=== PATIENT | female | born 1950 | race Caucasian/White ===

== ENCOUNTER 2018-05-24 11:18 | Inpatient (IN) | payer OTHER ==
[2018-05-24 11:34] VITALS: BMI 32.1
--- NOTE | 2018-05-24 11:48 | PDOC ---
Attending Attestation - Resident Resident Name: ChocoChetan peña - ED Attending Attestation I have performed the following: I have examined & evaluated the patient, The case was reviewed & discussed with the resident, I agree w/resident's findings & plan, Exceptions are as noted - HPI HPI: 05/24/18 11:47 67yo F Hx HTN, HL, CAD, vertigo BIBEMS for CP that started 12 hours ago. Pt describes CP as squeezing, 5/10, LSCP under her breast. She states the pain is better now in the ED after the nitro pill EMS gave her. She notes she has had similar chest pain for many months, but this morning "could not take the pain anymore." She also states her BP was elevated this morning prompting her to also call EMS. She c/o a global headache of gradual onset this morning too which she states she often has when her BP is high. 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 Per Dr. Jordan's office, she has not seen him in 7 years. Denies assciated sxs of weakness/numbness, abd pain, diaphoresis, N/V/D, LE edema. - Physicial Exam PE: 05/24/18 12:46 GENERAL: Awake, alert, and fully oriented, in no acute distress EYES: PERRLA, EOMI, sclera anicteric, conjunctiva clear ENT: Moist mucosa NECK: Normal ROM, supple, no lymphadenopathy, JVD, or masses LUNGS: Breath sounds equal, clear to auscultation bilaterally. No wheezes, and no crackles HEART: Regular rate and rhythm, normal S1 and S2, no murmurs, rubs or gallops. BP equal b/l. ABDOMEN: Soft, nontender, normoactive bowel sounds. No guarding, no rebound. No masses EXTREMITIES: Normal range of motion, no edema. No clubbing or cyanosis. No cords, erythema, or tenderness NEUROLOGICAL: Normal speech, cranial nerves intact, equal strength and sensation b/l. SKIN: Warm, Dry, normal turgor, no rashes or lesions noted. - Medical Decision Making 05/24/18 12:51 67yo F hx MMP including CAD presents to the ED with progressive LSCP. Vitals wnl. Exam wnl. EKG with sub 1mm BELÉN in AVR with lateral depressions. PT reporting pain has resolved at this time but story is concerning for unstable angina. Plan to check labs, XR, rpt EKG, discuss with cards, anticipate admission. Heart Score/ECG Review #1 05/24/18 12:49 Twelve-lead EKG was performed and reviewed by me. Normal sinus rhythm, rate 79. Normal axis. Sub-[address] elevation in aVR with [address] depressions in V4 to V6. When compared to EKG from 12/23/2015, ST elevation in aVR appears slightly higher today.
--- NOTE | 2018-05-24 11:51 | PDOC ---
History of Present Illness - General Stated Complaint: CHEST PAIN Time Seen by Provider: 05/24/18 11:23 History Source: Patient Exam Limitations: No Limitations - History of Present Illness Initial Comments: 05/24/18 11:39 The patient is a 67F with a PMH of HTN, HLD, CAD, arthritis, vertigo, who presents with CP. The patient states that she woke up in the middle of the night and felt squeezing under her R breast. The squeezing woke her up out of sleep, is intermittent, radiates to her L side, and does not have exacerbating or alleviating factors. She states it feels like a 3/10. She denies nausea, vomiting, lightheadedness, diaphoresis, and palpitations. She does admit to "dizziness" which she states feels like her vertigo. 05/24/18 13:47 Past History - Past Medical History Allergies/Adverse Reactions: Allergies Allergy/AdvReac Type Severity Reaction Status Date / Time celecoxib [From Celebrex] Allergy Mild Verified 05/24/18 11:32 Shellfish Allergy Mild Swelling Verified 05/24/18 11:32 Home Medications: Ambulatory Orders Ranolazine [Ranexa -] 1,000 mg PO BID #0 tab 06/04/12 Ranitidine HCl [Zantac] 150 mg PO BID 04/10/13 Alendronate Na [Fosamax (Weekly)] 1 tab PO WEEKLY 01/31/14 Rosuvastatin Calcium [Crestor] 20 mg PO HS 01/31/14 Propranolol HCl [Propranolol HCl ER] 160 mg PO BID 06/10/15 traZODone HCL [Desyrel -] 50 mg PO HS 06/10/15 Aripiprazole 2 mg PO HS 12/22/15 Levomefolate/Algal Oil [Deplin-Algal Oil 15 mg Capsule] 1 each PO HS 12/22/15 Hydrocodone/Acetaminophen [Vicodin 5-300 mg Tablet] 1 - 2 tab PO TID PRN #60 tablet MDD 6 12/23/15 Aspirin [ASA -] 81 mg PO DAILY tab.chew 05/29/18 Escitalopram Oxalate [Lexapro -] 10 mg PO DAILY #30 tablet 05/29/18 Heparin - 5,000 unit SQ BID vial 05/29/18 Isosorbide Mononitrate [Imdur -] 60 mg PO DAILY tab.sr.24h 05/29/18 Losartan Potassium [Cozaar -] 50 mg PO DAILY #30 tablet MDD 1 05/29/18 Ranitidine [Zantac -] 150 mg PO BID #30 tablet MDD 2 05/29/18 Ranolazine [Ranexa -] 1,000 mg PO BID tab 05/29/18 Rosuvastatin [Crestor -] 10 mg PO HS tablet 05/29/18 Sodium Chloride Tablet - 1 gm PO BID #30 tablet 05/29/18 propRANOLol HCL [Inderal LA -] 160 mg PO BID #30 capsule.er MDD 2 05/31/18 traZODone HCL [Desyrel -] 50 mg PO HS tablet 05/31/18 Anemia: No Asthma: No Cancer: No Cardiac Disorders: Yes ("MVP,HEART RACES") CVA: No COPD: No CHF: No Dementia: No Diabetes: No GI Disorders: Yes (H/O COLON POLYPS, IBS, HIATAL HERNIA ESPOPHAGEAL ACHALASI) Disorders: Yes (URINARY INCONTINENCE) HTN: Yes Hypercholesterolemia: Yes Liver Disease: Yes ("PT UNSURE OF SAME") Seizures: No Thyroid Disease: No - Surgical History Abdominal Surgery: Yes (HERNIA REPAIR) Appendectomy: Yes Cardiac Surgery: No Cholecystectomy: No Lung Surgery: No Neurologic Surgery: No Orthopedic Surgery: Yes (CARPAL TUNNEL REPAIR, KNEE/BACK SX) - Immunization History Td Vaccination: Yes Immunization Up to Date: Yes - Suicide/Smoking/Psychosocial Hx Smoking Status: No Smoking History: Unknown if ever smoked Years of Tobacco Use: 0 Have you smoked in the past 12 months: No Number of Cigarettes Smoked Daily: 0 Cigars Per Day: 0 Hx Alcohol Use: No Drug/Substance Use Hx: No Substance Use Type: None Hx Substance Use Treatment: No Review of Systems - Review of Systems Able to Perform ROS?: Yes Comments:: 05/24/18 12:10 GENERAL/CONSTITUTIONAL: No fever or chills. No weakness. HEAD, EYES, EARS, NOSE AND THROAT: No change in vision. No ear pain or discharge. No sore throat. CARDIOVASCULAR: Positive for chest pain. No palpitations or lightheadedness. RESPIRATORY: No cough, wheezing, shortness of breath, or hemoptysis. GASTROINTESTINAL: No nausea, vomiting, diarrhea, constipation, or abdominal pain. GENITOURINARY: No dysuria, frequency, hematuria, or change in urination. MUSCULOSKELETAL: No joint or muscle swelling or pain. No neck or back pain. SKIN: No rash or lesions. NEUROLOGIC: Positive for vertiginous dizziness. No headache, numbness, tingling , focal weakness, loss of consciousness, or change in strength/sensation. Is the patient limited [place] proficient: No *Physical Exam - Vital Signs Last Vital Signs Temp Pulse Resp BP Pulse Ox 97.5 F L 90 18 135/92 98 05/24/18 11:20 05/24/18 11:20 05/24/18 11:20 05/24/18 11:20 05/24/18 11:20 - Physical Exam Comments: 05/24/18 12:12 GENERAL: Well developed, well nourished. Awake and alert. No acute distress. HEENT: Normocephalic, atraumatic. Hearing grossly normal. Moist mucous membranes. PERRLA, EOMI. No conjunctival pallor. Sclera are non-icteric. NECK: Supple. Full ROM. No JVD. CARDIOVASCULAR: Regular rate and rhythm. No murmurs, rubs, or gallops. PULMONARY: No evidence of respiratory distress. Lungs clear to auscultation bilaterally. No wheezing, rales or rhonchi. ABDOMINAL: Soft. Non-tender. Non-distended. No rebound or guarding. GENITOURINARY: No CVA tenderness bilaterally. MUSCULOSKELETAL: Normal range of motion at all joints. No bony deformities or tenderness. EXTREMITIES: No cyanosis. No clubbing. 1+ edema in b/l LE. No calf tenderness or swelling. SKIN: Erythematous rash under Warm and dry. Normal capillary refill. No rashes. No jaundice. NEUROLOGICAL: Alert, awake, appropriate. Cranial nerves 2-12 grossly intact. Normal speech. Gait is normal without ataxia. PSYCHIATRIC: Cooperative. Good eye contact. Appropriate mood and affect. Moderate Sedation - Procedure Monitoring Vital Signs: Procedure Monitoring Vital Signs Temperature 97.5 F L 05/24/18 11:20 Pulse Rate 90 05/24/18 11:20 Respiratory Rate 18 05/24/18 11:20 Blood Pressure 135/92 05/24/18 11:20 O2 Sat by Pulse Oximetry (%) 98 05/24/18 11:20 Heart Score/ECG Review - History History: Moderately suspicious - Electrocardiogram EKG: Non specific repolarization disturbance - Age Age: >/= 65 - Risk Factors Risk Factors Heart Score: Yes Hx Hypercholesterolemia, Yes Hx Hypertension, Yes Hx Obesity Based on the list above the patient has:: >/=3 risk factors or Hx atherosclerotic disease - Troponin Troponin: </= normal limit - Score Heart Score - Total: 6 #1 ECG reviewed & interpreted by me at: 12:16 General ECG Interpretation: Sinus Rhythm, Normal Rate, Normal Intervals Compared to previous ECG there are: Changes noted 05/24/18 12:16 NSR vent rate 80 MD 180 QRS 94 QTc 499 ~1mm BELÉN in aVR with depressions in V4-V6 Depressions noted on EKG in 12/2015 but are more prominent today ED Treatment Course - LABORATORY CBC & Chemistry Diagram: 05/31/18 05:30 05/31/18 05:30 - RADIOLOGY Radiology Studies Ordered: Category Date Time Status CHEST X-RAY PORTABLE* [RAD] Stat Radiology 05/24/18 11:28 Ordered Medical Decision Making - Medical Decision Making 05/24/18 11:57 The patient is a 67F with MMP who presents with CP concerning for ACS. EKG shows possible <1mm elevations in aVR c/w EKG in 12/2015. Dr. Godoy's group paged for consultation. EMS gave pt 1 nitro d/t elevated BP. Pt has taken asa at home. 05/24/18 12:17 Dr. Godoy's group paged x 2. 05/24/18 12:19 CXR negative. 05/24/18 12:30 Case d/w Dr. Avalos [phone]. Case also d/w Dr. Reyna who recommends calling Dr. Ferguson as this is the pt's larriman Pt follows with Dr. Ferguson who we will page. Pt has not seen Dr. Ferguson (per his office) in 7-8 years. Pending call back. 05/24/18 13:42 Dr. Avalos states he agrees with our concern but that this is not an acute STEMI. Dr. Reyna paged for admission. 05/24/18 13:[address] Reyna for admission. *DC/Admit/Observation/Transfer Diagnosis at time of Disposition: Chest pain Qualifiers: Chest pain type: precordial pain Qualified Code(s): R07.2 - Precordial pain - Discharge Dispostion Disposition: INTERMEDIATE FACILITY Condition at time of disposition: Improved - Prescriptions - Referrals - Patient Instructions - Post Discharge Activity
[2018-05-24 12:00] LABS: BASO % 0.8 % (0-2.0); EOS % 0.1 % (0-4.5); HEMATOCRIT 38.7 % (32.4-45.2); HEMOGLOBIN 13.8 GM/dL (10.7-15.3); LYMPH % 7.1 % (8-40); MCH 34.4 pg (25.7-33.7); MCHC 35.5 g/dl (32.0-36.0); MEAN CELL VOLUME 96.7 fl (80-96); MEAN PLT VOLUME 7.1 fl (7.5-11.1); PLATELET COUNT 330 K/MM3 (134-434); WHITE BLOOD COUNT 10.2 K/mm3 (4.0-10.0)
[2018-05-24] MEDS ORDERED: ACETAMINOPHEN 1000 MG/100 ML VIAL (NON FORMULARY) IVPB ONE (12:19)
[2018-05-24] MEDS ORDERED: MECLIZINE HCL 25 MG TABLET (FP) PO ONE (12:19)
[2018-05-24 12:21] LABS: INR 1.01 (0.83-1.09); PROTHROMBIN TIME (PATIENT) 11.9 SEC (9.7-13.0)
[2018-05-24] MEDS ORDERED: MECLIZINE HCL 25 MG TABLET (FP) ONE (12:32)
[2018-05-24] MEDS ORDERED: ACETAMINOPHEN INJECTION 100 ML IVPB ONE (12:32)
[2018-05-24 12:40] LABS: ALBUMIN 3.6 g/dl (3.4-5.0); ALK PHOS 61 U/L (45-117); ANION GAP 12 MMOL/L (8-16); BILIRUBIN,TOTAL 0.5 mg/dL (0.2-1); BLOOD UREA NITROGEN 10 mg/dL (7-18); CALCIUM 8.4 mg/dL (8.5-10.1); CHLORIDE 90 mmol/L (98-107); CO2 24 mmol/L (21-32); CREATININE 0.6 mg/dL (0.55-1.3); GLUCOSE,RANDOM 158 mg/dL (74-106); MAGNESIUM 1.8 mg/dL (1.8-2.4); POTASSIUM 3.6 mmol/L (3.5-5.1); SGOT/AST 28 U/L (15-37); SGPT/ALT 16 U/L (13-61); SODIUM 125 mmol/L (136-145); TOT PROT 6.8 g/dl (6.4-8.2)
[2018-05-24] MEDS ORDERED: SODIUM CHLORIDE 0.9% 1000 ML INFUS.BAG IV ONE (12:53)
--- NOTE | 2018-05-24 14:54 | HP ---
Admitting History and Physical - Primary Care Physician PCP: Ethan López - Admission Chief Complaint: came in with chest pressure History of Present Illness: The patient is a 67F with a PMH of HTN, HLD, CAD, arthritis, vertigo, who presents with CP. The patient states that she woke up in the middle of the night and felt squeezing under her R breast. The squeezing woke her up out of sleep, is intermittent, radiates to her L side, and does not have exacerbating or alleviating factors. She states it feels like a 3/10.patient says she feels nauseous History Source: Patient, Medical Record - Past Medical History HEAD OF QUALITY: Yes: Migraine Cardiovascular: Yes: CAD, HTN, Hyperlipdemia - Smoking History Smoking history: Unknown if ever smoked Have you smoked in the past 12 months: No Aproximately how many cigarettes per day: 0 - Alcohol/Substance Use Hx Alcohol Use: No Home Medications - Allergies Allergies/Adverse Reactions: Allergies Allergy/AdvReac Type Severity Reaction Status Date / Time celecoxib [From Celebrex] Allergy Mild Verified 05/24/18 11:32 Shellfish Allergy Mild Swelling Verified 05/24/18 11:32 - Home Medications Home Medications: Ambulatory Orders Ranolazine [Ranexa -] 1,000 mg PO BID #0 tab 06/04/12 Ranitidine HCl [Zantac] 150 mg PO BID 04/10/13 Alendronate Na [Fosamax (Weekly)] 1 tab PO WEEKLY 01/31/14 Rosuvastatin Calcium [Crestor] 20 mg PO HS 01/31/14 Benztropine Mesylate 0.5 mg PO DAILY 06/10/15 Escitalopram Oxalate [Lexapro -] 20 mg PO DAILY 06/10/15 Propranolol HCl [Propranolol HCl ER] 160 mg PO BID 06/10/15 Sumatriptan Succinate [Imitrex] 100 mg PO PRN PRN 06/10/15 traZODone HCL [Desyrel -] 50 mg PO HS 06/10/15 Aripiprazole 2 mg PO HS 12/22/15 Isosorbide Mononitrate [Imdur -] 60 mg PO PRN 12/22/15 Levomefolate/Algal Oil [Deplin-Algal Oil 15 mg Capsule] 1 each PO HS 12/22/15 Oxycodone HCl 10 mg PO PRN PRN 12/22/15 Hydrocodone/Acetaminophen [Vicodin 5-300 mg Tablet] 1 - 2 tab PO TID PRN #60 tablet MDD 6 12/23/15 Physical Examination Vital Signs: Vital Signs Temperature 97.5 F L 05/24/18 11:20 Pulse Rate 90 05/24/18 11:20 Respiratory Rate 18 05/24/18 11:20 Blood Pressure 135/92 05/24/18 11:20 O2 Sat by Pulse Oximetry (%) 100 05/24/18 11:40 Labs: CBC, BMP 05/24/18 11:36 05/24/18 11:36 Problem List - Problems (1) Hyponatremia Assessment/Plan: ivf renal fluid recheck sodium urine lytes recheck sodium Code(s): E87.1 - HYPO-OSMOLALITY AND HYPONATREMIA (2) Chest pain Assessment/Plan: telemtry echo ekg see dr french- consjulted lipid profile statin aspirin Code(s): R07.9 - CHEST PAIN, UNSPECIFIED
[2018-05-24] MEDS ORDERED: ISOSORBIDE MONONITRATE 60 MG TAB.SR.24H (FP) PO ONE (14:55)
[2018-05-24] MEDS ORDERED: SODIUM CHLORIDE 1,000 ML IV SCH (15:00)
--- NOTE | 2018-05-24 15:36 | EKG ---
Test Reason : Blood Pressure : / mmHG Vent. Rate : 079 BPM Atrial Rate : 079 BPM P-R Int : 180 ms QRS Dur : 094 ms QT Int : 436 ms P-R-T Axes : 055 -11 -02 degrees QTc Int : 499 ms NORMAL SINUS RHYTHM PROLONGED QT ABNORMAL ECG WHEN COMPARED WITH ECG OF 23-DEC-2015 09:33, ST NOW DEPRESSED IN INFERIOR LEADS T WAVE INVERSION LESS EVIDENT IN LATERAL LEADS QT HAS LENGTHENED Confirmed by TASHIA OBREGON, OLEKSANDR ([id number]) on 05/24/2018 3:36:34 PM Referred By: Confirmed By:OLEKSANDR LAO MD
[2018-05-24] MEDS ORDERED: ONDANSETRON 4 MG/2 ML VIAL ONE (16:50)
[2018-05-24] MEDS: ONDANSETRON 4 MG/2 ML VIAL IVPUSH PRN ×2 (16:54→21:47)
--- NOTE | 2018-05-24 17:05 | CONSULT ---
Consult Consult Specialty:: Nephrology Reason for Consultation:: hyponatremia - History of Present Illness Chief Complaint: chest pain History of Present Illness: Pt is a 67 year old female with pmhx of HTN, HLD, CAD, arthritis, depression and vertigo who presents to [facility] ER with chest pain. She says it began in the middle of the night and felt like pressure under her right chest. She was found to be hyponatremic and I was called to evaluate her. She denies excess water intake. She says that she is on [facility] meds but does not remember the names. She denies lower ext edema or shortness of breath. He denies dysuria or hematuria. She denies nausea or vomiting. She denies diarrhea. 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 Cardio/Vascular: Yes: CAD, HTN, Hyperlipdemia Psych: Yes: Depression - Alcohol/Substance Use Hx Alcohol Use: No - Smoking History Smoking history: Unknown if ever smoked Have you smoked in the past 12 months: No Aproximately how many cigarettes per day: 0 Home Medications - Allergies Allergies/Adverse Reactions: Allergies Allergy/AdvReac Type Severity Reaction Status Date / Time celecoxib [From Celebrex] Allergy Mild Verified 05/24/18 11:32 Shellfish Allergy Mild Swelling Verified 05/24/18 11:32 - Home Medications Home Medications: Ambulatory Orders Ranolazine [Ranexa -] 1,000 mg PO BID #0 tab 06/04/12 Ranitidine HCl [Zantac] 150 mg PO BID 04/10/13 Alendronate Na [Fosamax (Weekly)] 1 tab PO WEEKLY 01/31/14 Rosuvastatin Calcium [Crestor] 20 mg PO HS 01/31/14 Benztropine Mesylate 0.5 mg PO DAILY 06/10/15 Escitalopram Oxalate [Lexapro -] 20 mg PO DAILY 06/10/15 Propranolol HCl [Propranolol HCl ER] 160 mg PO BID 06/10/15 Sumatriptan Succinate [Imitrex] 100 mg PO PRN PRN 06/10/15 traZODone HCL [Desyrel -] 50 mg PO HS 06/10/15 Aripiprazole 2 mg PO HS 12/22/15 Isosorbide Mononitrate [Imdur -] 60 mg PO PRN 12/22/15 Levomefolate/Algal Oil [Deplin-Algal Oil 15 mg Capsule] 1 each PO HS 12/22/15 Oxycodone HCl 10 mg PO PRN PRN 12/22/15 Hydrocodone/Acetaminophen [Vicodin 5-300 mg Tablet] 1 - 2 tab PO TID PRN #60 tablet MDD 6 12/23/15 Family Disease History - Family Disease History Family History: Denies Review of Systems - Review of Systems Constitutional: reports: No Symptoms Eyes: reports: No Symptoms HENT: reports: No Symptoms Neck: reports: No Symptoms Cardiovascular: reports: Chest Pain. denies: Edema, Palpitations, Shortness of Breath Respiratory: reports: No Symptoms Gastrointestinal: reports: No Symptoms Genitourinary: reports: No Symptoms Musculoskeletal: reports: No Symptoms Integumentary: reports: No Symptoms Neurological: reports: No Symptoms Endocrine: reports: No Symptoms Hematology/Lymphatic: reports: No Symptoms Psychiatric: reports: No Symptoms Physical Exam Vital Signs: Vital Signs Temperature 97.5 F L 05/24/18 11:20 Pulse Rate 88 05/24/18 15:30 Respiratory Rate 18 05/24/18 15:30 Blood Pressure 154/92 05/24/18 15:30 O2 Sat by Pulse Oximetry (%) 93 L 05/24/18 15:30 Constitutional: Yes: Calm Eyes: Yes: Conjunctiva Clear HENT: Yes: Atraumatic Neck: Yes: Supple Cardiovascular: Yes: S1, S2 Respiratory: Yes: CTA Bilaterally Gastrointestinal: Yes: Soft, Abdomen, Obese Renal/: Yes: WNL Musculoskeletal: Yes: WNL Edema: No Neurological: Yes: Oriented Psychiatric: Yes: Oriented Labs: CBC, BMP 05/24/18 11:36 05/24/18 11:36 Laboratory Tests 05/24/18 05/24/18 05/24/18 11:36 11:36 12:53 WBC 10.2 H Hgb 13.8 Plt Count 330 D Sodium 125 L Potassium 3.6 Chloride 90 L Random Glucose 158 H Serum Osmolality 263 L Imaging - Results Chest X-ray: Report Reviewed Problem List - Problems (1) Hyponatremia Code(s): E87.1 - HYPO-OSMOLALITY AND HYPONATREMIA (2) Chest pain Code(s): R07.9 - CHEST PAIN, UNSPECIFIED (3) Hypertension Code(s): I10 - ESSENTIAL (PRIMARY) HYPERTENSION Assessment/Plan Current Medications Generic Name Dose Route Start Last Admin Trade Name Freq PRN Reason Stop Dose Admin Acetaminophen 650 mg 05/24/18 14:58 Tylenol - PO Q6H PRN PAIN LEVEL 1-5 Sodium Chloride 1,000 mls @ 75 mls/hr 05/24/18 15:00 05/24/18 15:50 Normal Saline - IV 75 mls/hr ASDIR JASON Administration Isosorbide Mononitrate 60 mg 05/25/18 10:00 Imdur - PO DAILY JASON Ondansetron HCl 4 mg 05/24/18 14:48 05/24/18 16:54 Zofran Injection IVPUSH 4 mg Q6H PRN Administration NAUSEA Oxycodone HCl 5 mg 05/24/18 15:01 Roxicodone - PO Q6H PRN PAIN LEVEL 7 - 10 Ranitidine HCl 150 mg 05/24/18 22:00 Zantac - PO BID JASON Rosuvastatin Calcium 10 mg 05/24/18 22:00 Crestor - PO HS [facility] Impression 1. hyponatremia 2. chest pain 3. gerd 4. hld 5. depression 6. anxiety 7. htn 8. arthritis Plan - pt started on fluids, follow repeat bmp - check urine osm and urine sodium, ordered - plasma osm is low, hypo-osmolar hyponatremia - she appears euvolemic - restrict free water intake for now - will need to evaluate urine studies - check cortisol and tsh - pt will have her son bring in her meds for review as she does not remember all of them, unsure if the meds in the chart are all that she is on -
--- NOTE | 2018-05-24 17:53 | CON.CARD ---
Consult Consult Specialty:: Cardiology Referred by:: Dr. Reyna Reason for Consultation:: Chest pain - History of Present Illness Chief Complaint: Chest pain History of Present Illness: 67-year-old female with known history of chest pain syndrome consistent with coronary artery disease related to endothelial dysfunction with negative myocardial perfusion imaging study May 13, 2010 negative cardiac catheterization coronary angiography August 22, 2011, mitral valve prolapse syndrome, hypertensive cardiovascular disease labile hypertension, hypercholesterolemia, carotid stenosis mild in severity, migraine headaches, hemochromatosis, degenerative lumbosacral disc disease with chronic low back pain syndrome and history of fracture ankle post fall who was last evaluated in the office January 21, 2015. Patient has been reporting recurrent episodes of left-sided chest discomfort described as heaviness starting in beginning of the year. Symptoms are predominantly noted at rest and they are not exacerbated by physical exertion. Patient denied any associated symptomatology i.e. diaphoresis. Patient denies any dyspnea, orthopnea or paroxysmal nocturnal dyspnea. Patient continues to report intermittent bilateral lower extremity edema that worsens in the latter part of the day. Patient denies any palpitations, dizziness, lightheadedness or syncope. Patient denies any fatigue or tiredness. - History Source History Provided By: Patient Limitations to Obtaining History: No Limitations - Past Medical History CLIPMAN: Yes: Migraine Cardio/Vascular: Yes: CAD, HTN, Hyperlipdemia - Alcohol/Substance Use Hx Alcohol Use: No - Smoking History Smoking history: Unknown if ever smoked Have you smoked in the past 12 months: No Aproximately how many cigarettes per day: 0 Home Medications - Allergies Allergies/Adverse Reactions: Allergies Allergy/AdvReac Type Severity Reaction Status Date / Time celecoxib [From Celebrex] Allergy Mild Verified 05/24/18 11:32 Shellfish Allergy Mild Swelling Verified 05/24/18 11:32 - Home Medications Home Medications: Ambulatory Orders Ranolazine [Ranexa -] 1,000 mg PO BID #0 tab 06/04/12 Ranitidine HCl [Zantac] 150 mg PO BID 04/10/13 Alendronate Na [Fosamax (Weekly)] 1 tab PO WEEKLY 01/31/14 Rosuvastatin Calcium [Crestor] 20 mg PO HS 01/31/14 Benztropine Mesylate 0.5 mg PO DAILY 06/10/15 Escitalopram Oxalate [Lexapro -] 20 mg PO DAILY 03/09/16 Propranolol HCl [Propranolol HCl ER] 160 mg PO BID 06/10/15 Sumatriptan Succinate [Imitrex] 100 mg PO PRN PRN 06/10/15 traZODone HCL [Desyrel -] 50 mg PO HS 06/10/15 Aripiprazole 2 mg PO HS 12/22/15 Isosorbide Mononitrate [Imdur -] 60 mg PO PRN 12/22/15 Levomefolate/Algal Oil [Deplin-Algal Oil 15 mg Capsule] 1 each PO HS 12/22/15 Oxycodone HCl 10 mg PO PRN PRN 12/22/15 Hydrocodone/Acetaminophen [Vicodin 5-300 mg Tablet] 1 - 2 tab PO TID PRN #60 tablet MDD 6 12/23/15 Review of Systems - Review of Systems Cardiovascular: reports: Chest Pain Vital Signs: Vital Signs Temperature 97.5 F L 05/24/18 11:20 Pulse Rate 88 05/24/18 15:30 Respiratory Rate 18 05/24/18 15:30 Blood Pressure 154/92 05/24/18 15:30 O2 Sat by Pulse Oximetry (%) 93 L 05/24/18 15:30 Constitutional: Yes: No Distress, Calm Neck: Yes: Supple Respiratory: Yes: Regular, CTA Bilaterally Gastrointestinal: Yes: Normal Bowel Sounds, Soft, Abdomen, Obese Cardiovascular: Yes: Regular Rate and Rhythm JVD: No Carotid Bruit: No Heart Sounds: Yes: S1, S2 Murmur: Yes: Systolic Murmur, Grade 1 Edema: Yes Edema: LLE: Trace, RLE: Trace Neurological: Yes: Tremors - Other Data Labs, Other Data: CBC, BMP 05/24/18 11:36 05/24/18 11:36 INR, PTT INR 1.01 (0.83-1.09) 05/24/18 11:36 Troponin, BNP 05/24/18 11:36 Troponin I < 0.02 Troponin, BNP 05/24/18 11:36 Troponin I < 0.02 NSR @ 79 LAD Ejection Fraction %: LVEF > or = 40 % Imaging - Results Chest X-ray: Report Reviewed (Min ATX right base) Cat Scan: Report Reviewed (HCT: SVID) Problem List - Problems (1) Mitral valve prolapse syndrome Code(s): I34.1 - NONRHEUMATIC MITRAL (VALVE) PROLAPSE (2) Endothelial dysfunction of coronary artery Code(s): I99.8 - OTHER DISORDER OF CIRCULATORY SYSTEM (3) Chest pain Code(s): R07.9 - CHEST PAIN, UNSPECIFIED Qualifiers: Chest pain type: precordial pain Qualified Code(s): R07.2 - Precordial pain (4) Hyperlipemia Code(s): E78.5 - HYPERLIPIDEMIA, UNSPECIFIED Qualifiers: Hyperlipidemia type: pure hypercholesterolemia Qualified Code(s): E78.00 - Pure hypercholesterolemia, unspecified; E78.0 - Pure hypercholesterolemia (5) Hypertension Code(s): I10 - ESSENTIAL (PRIMARY) HYPERTENSION Qualifiers: Hypertension type: essential hypertension Qualified Code(s): I10 - Essential (primary) hypertension (6) Hyponatremia Code(s): E87.1 - HYPO-OSMOLALITY AND HYPONATREMIA Assessment/Plan A: 1. Recurrent chest pain syndrome in a patient with known history of coronary artery disease related to endothelial dysfunction with negative myocardial perfusion imaging study negative cardiac catheterization coronary angiography angina pectoris. 2. Mitral valve prolapse syndrome. 3. Hypertensive cardiovascular disease. 4. Hypercholesterolemia. 5. Hyponatremia previously on Lasix-euvolemic 6. Carotid stenosis mild in severity. 7. History of migraine headaches. 8. History of hemochromatosis. 9. Degenerative lumbosacral disc disease with chronic low back pain syndrome. 10. History of traumatic ankle fracture post-ORIF P: 1. Ruling out for LA, IVF with f/u Na and urine electrolytes, medication reconciliation 2. Resume Inderal LA 160 bid, Benicar 20 qd, Ranexa 1000 mg twice a day, Imdur 60 mg once a day, Crestor 20 mg once a day, Ecotrin 81 mg once a day 3. F/u echo already ordered 4. Stress testing may be performed as outpatient, f/u with Dr. Holder in office 5. Thank you for consultative opportunity
[2018-05-24 18:48] LABS: URINE APPEARANCE CLEAR; URINE BILIRUBIN NEGATIVE (<2.0 mg/dL); URINE COLOR DKYELLOW; URINE GLUCOSE (UA) NEGATIVE (NEGATIVE); URINE KETONE 1+ (NEGATIVE); URINE LEUK ESTERASE TRACE (NEGATIVE); URINE NITRITE NEGATIVE (NEGATIVE); URINE PROTEIN 1+ (NEGATIVE); URINE UROBILINOGEN NEGATIVE mg/dL (0.2-1.0)
[2018-05-24 18:51] LABS: EPI CELLS RARE /HPF (FEW); URINE HYALINE CAST 1 /lpf; URINE MUCUS RARE
[2018-05-24 20:20] LABS: ANION GAP 10 MMOL/L (8-16); BLOOD UREA NITROGEN 11 mg/dL (7-18); CHLORIDE 94 mmol/L (98-107); CO2 22 mmol/L (21-32); CREATININE 0.7 mg/dL (0.55-1.3); GLUCOSE,RANDOM 143 mg/dL (74-106); POTASSIUM 3.3 mmol/L (3.5-5.1); SODIUM 126 mmol/L (136-145)
[2018-05-24] MEDS ORDERED: POTASSIUM CHLORIDE TABS 20 MEQ TABLET.ER (FP) PO ONE (21:15)
[2018-05-24 22:40] LABS: ALBUMIN 3.4 g/dl (3.4-5.0); ALK PHOS 56 U/L (45-117); BILIRUBIN,TOTAL 0.4 mg/dL (0.2-1); SGOT/AST 27 U/L (15-37); SGPT/ALT 17 U/L (13-61); TOT PROT 6.4 g/dl (6.4-8.2)
[2018-05-24] MEDS: ROSUVASTATIN CA 10 MG TABLET (FP) PO SCH (22:46)
[2018-05-24] MEDS: RANOLAZINE E.R. 1,000 MG TABLET (FP) PO SCH (22:46)
[2018-05-24] MEDS: RANITIDINE HCL 150 MG TABLET (FP) PO SCH (22:46)
[2018-05-24] MEDS: oxyCODONE HCL 5 MG TABLET PO PRN (22:50)
[2018-05-25] MEDS: ONDANSETRON 4 MG/2 ML VIAL IVPUSH PRN ×3 (04:25→21:29)
[2018-05-25] MEDS: oxyCODONE HCL 5 MG TABLET PO PRN ×2 (06:18→21:13)
[2018-05-25 08:16] LABS: HEMATOCRIT 36.5 % (32.4-45.2); HEMOGLOBIN 13.2 GM/dL (10.7-15.3); MCH 35.3 pg (25.7-33.7); MCHC 36.2 g/dl (32.0-36.0); MEAN CELL VOLUME 97.5 fl (80-96); MEAN PLT VOLUME 7.1 fl (7.5-11.1); PLATELET COUNT 282 K/MM3 (134-434); RBC 3.75 M/mm3 (3.60-5.2); WHITE BLOOD COUNT 7.3 K/mm3 (4.0-10.0)
[2018-05-25 08:20] LABS: INR 0.97 (0.83-1.09); PROTHROMBIN TIME (PATIENT) 11.5 SEC (9.7-13.0)
[2018-05-25 08:23] LABS: ACTIVATED PTT 28.7 SECONDS (25.2-36.5)
[2018-05-25 08:51] LABS: ALBUMIN 3.4 g/dl (3.4-5.0); ALK PHOS 59 U/L (45-117); ANION GAP 10 MMOL/L (8-16); BILIRUBIN,TOTAL 0.4 mg/dL (0.2-1); BLOOD UREA NITROGEN 5 mg/dL (7-18); CHLORIDE 94 mmol/L (98-107); CHOLESTEROL 140 mg/dL (50-200); CO2 26 mmol/L (21-32); CREATININE 0.5 mg/dL (0.55-1.3); GLUCOSE,RANDOM 121 mg/dL (74-106); HDL CHOLESTEROL 51 mg/dL (40-60); MAGNESIUM 1.8 mg/dL (1.8-2.4); N-TERMINAL BNP 1347.9 pg/ml (5-125); PHOSPHOROUS 2.1 mg/dL (2.5-4.9); POTASSIUM 3.3 mmol/L (3.5-5.1); SGOT/AST 37 U/L (15-37); SGPT/ALT 22 U/L (13-61); SODIUM 129 mmol/L (136-145); TOT PROT 6.4 g/dl (6.4-8.2); TRIGLYCERIDES 119 mg/dL (0-150)
--- NOTE | 2018-05-25 09:02 | PN ---
Progress Note, Physician History of Present Illness: Chest discomfort and dyspnea somewhat improved. - Current Medication List Current Medications: Active Medications Acetaminophen (Tylenol -) 650 mg PO Q6H PRN PRN Reason: PAIN LEVEL 1-5 Aspirin (Asa -) 81 mg PO DAILY [facility] Sodium Chloride (Normal Saline -) 1,000 mls @ 75 mls/hr IV ASDIR [facility] Last Admin: 05/24/18 15:50 Dose: 75 mls/hr Isosorbide Mononitrate (Imdur -) 60 mg PO DAILY [facility] Ondansetron HCl (Zofran Injection) 4 mg IVPUSH Q6H PRN PRN Reason: NAUSEA Last Admin: 05/25/18 04:25 Dose: 4 mg Oxycodone HCl (Roxicodone -) 5 mg PO Q6H PRN PRN Reason: PAIN LEVEL 7 - 10 Last Admin: 05/25/18 06:18 Dose: 5 mg Propranolol HCl (Inderal La -) 160 mg PO BID [facility] Last Admin: 05/24/18 22:46 Dose: 160 mg Ranitidine HCl (Zantac -) 150 mg PO BID [facility] Last Admin: 05/24/18 22:46 Dose: 150 mg Ranolazine (Ranexa -) 1,000 mg PO BID [facility] Last Admin: 05/24/18 22:46 Dose: 1,000 mg Rosuvastatin Calcium (Crestor -) 10 mg PO HS [facility] Last Admin: 05/24/18 22:46 Dose: 10 mg - Objective Vital Signs: Vital Signs Temperature 98.0 F 05/25/18 06:00 Pulse Rate 89 05/25/18 06:00 Respiratory Rate 20 05/25/18 06:00 Blood Pressure 153/87 05/25/18 06:00 O2 Sat by Pulse Oximetry (%) 97 05/24/18 18:35 Constitutional: Yes: No Distress, Calm Neck: Yes: Supple Cardiovascular: Yes: Regular Rate and Rhythm Respiratory: Yes: Regular, CTA Bilaterally Gastrointestinal: Yes: Normal Bowel Sounds, Soft Edema: No Labs: CBC, BMP 05/25/18 07:18 05/25/18 07:18 INR, PTT INR 0.97 (0.83-1.09) 05/25/18 07:18 - ....Imaging EKG: Report Reviewed (Tele: SR) Problem List - Problems (1) Mitral valve prolapse syndrome Code(s): I34.1 - NONRHEUMATIC MITRAL (VALVE) PROLAPSE (2) Endothelial dysfunction of coronary artery Code(s): I99.8 - OTHER DISORDER OF CIRCULATORY SYSTEM (3) Chest pain Code(s): R07.9 - CHEST PAIN, UNSPECIFIED Qualifiers: Chest pain type: precordial pain Qualified Code(s): R07.2 - Precordial pain (4) Hyperlipemia Code(s): E78.5 - HYPERLIPIDEMIA, UNSPECIFIED Qualifiers: Hyperlipidemia type: pure hypercholesterolemia Qualified Code(s): E78.00 - Pure hypercholesterolemia, unspecified; E78.0 - Pure hypercholesterolemia (5) Hypertension Code(s): I10 - ESSENTIAL (PRIMARY) HYPERTENSION Qualifiers: Hypertension type: essential hypertension Qualified Code(s): I10 - Essential (primary) hypertension (6) Hyponatremia Code(s): E87.1 - HYPO-OSMOLALITY AND HYPONATREMIA Assessment/Plan A: 1. Recurrent chest pain syndrome in a patient with known history of coronary artery disease related to endothelial dysfunction with negative myocardial perfusion imaging study negative cardiac catheterization coronary angiography angina pectoris. 2. Mitral valve prolapse syndrome. 3. Hypertensive cardiovascular disease. 4. Hypercholesterolemia. 5. Hyponatremia euvolemic resolving 6. Carotid stenosis mild in severity. 7. History of migraine headaches. 8. History of hemochromatosis. 9. Degenerative lumbosacral disc disease with chronic low back pain syndrome. 10. History of traumatic ankle fracture post-ORIF P: 1. Ruled out for [place], IVF f/u Na and urine electrolytes, medication reconciliation 2. Continue Inderal LA 160 bid, Benicar 20 qd, Ranexa 1000 mg twice a day, Imdur 60 mg once a day, Crestor 20 mg once a day, Ecotrin 81 mg once a day 3. F/u echo already ordered 4. Stress testing may be performed as outpatient, f/u with Dr. Holder in office
[2018-05-25] MEDS: ISOSORBIDE MONONITRATE 60 MG TAB.SR.24H (FP) PO SCH (09:46)
[2018-05-25] MEDS: RANOLAZINE E.R. 1,000 MG TABLET (FP) PO SCH ×2 (09:46→21:13)
[2018-05-25] MEDS: ASPIRIN 81 MG CHEWABLE TABLETS PO SCH (09:47)
[2018-05-25] MEDS: RANITIDINE HCL 150 MG TABLET (FP) PO SCH ×2 (09:47→21:13)
--- NOTE | 2018-05-25 10:23 | ECHO ---
Name: CLAUDIA CINTRON Exam:Adult Echocardiogram Study Date: 05/25/2018 08:17 AM Age: 67 yrs Reason For Study: LOOK AT WALL MOTION Height: 61 in Weight: 170 lb BSA: 1.8 m2 MMode/2D Measurements & Calculations IVSd: 1.1 cm Ao root diam: 2.6 cm LVIDd: 4.7 cm LA dimension: 3.5 cm LVIDs: 3.5 cm LVPWd: 0.97 cm EDV(Teich): 104.6 ml LVOT diam: 2.5 cm ESV(Teich): 49.9 ml Doppler Measurements & Calculations MV E max nelson: 56.8 cm/sec Ao V2 max: 139.0 cm/sec MV A max nelson: 89.3 cm/sec Ao max P.7 mmHg MV E/A: 0.64 MV dec time: 0.16 sec YUE(V,D): 2.4 cm2 LV V1 max P.8 mmHg MR max nelson: 506.0 cm/sec LV V1 max: 66.8 cm/sec MR max P.4 mmHg TR max nelson: 228.0 cm/sec Med Peak E' Nelson: 30.8 cm/sec TR max P.8 mmHg Med E/e': 1.8 Lat Peak E' Nelson: 45.7 cm/sec Lat E/e': 1.2 Procedure The study was technically difficult with many images being suboptimal in quality. Left Ventricle Left ventricular systolic function is normal. Ejection Fraction = 55-60%. Right Ventricle The right ventricle is normal in size and function. Atria Normal left and right atrial size and function. Mitral Valve The mitral valve is normal in structure and function. There is no mitral valve stenosis. There is mil d mitral regurgitation. Tricuspid Valve The tricuspid valve is normal in structure and function. There is mild tricuspid regurgitation. Aortic Valve No hemodynamically significant valvular aortic stenosis. No aortic regurgitation is present. Pulmonic Valve The pulmonic valve is normal in structure and function. There is no pulmonic valvular stenosis. There is no pulmonic valvular regurgitation. Great Vessels The aortic root is normal size. Pericardium/Pleura There is no pericardial effusion. Interpretation Summary The study was technically difficult with many images being suboptimal in quality. Left ventricular systolic function is normal. Ejection Fraction = 55-60%. The right ventricle is normal in size and function. There is mild mitral regurgitation. There is mild tricuspid regurgitation. There is no pericardial effusion. MD Waters *Gabi 05/25/2018 10:23 AM
[2018-05-25 10:43] LABS: OSMOLALITY,SERUM 482 mosm/kg (278-305)
--- NOTE | 2018-05-25 11:19 | PN ---
Progress Note, Physician History of Present Illness: Pt seen and examined at bedside. SHe denies chest pain. She says she feels well and wants to go home. - Current Medication List Current Medications: Active Medications Acetaminophen (Tylenol -) 650 mg PO Q6H PRN PRN Reason: PAIN LEVEL 1-5 Aspirin (Asa -) 81 mg PO DAILY [facility] Last Admin: 05/25/18 09:47 Dose: 81 mg Sodium Chloride (Normal Saline -) 1,000 mls @ 75 mls/hr IV ASDIR [facility] Last Admin: 05/24/18 15:50 Dose: 75 mls/hr Isosorbide Mononitrate (Imdur -) 60 mg PO DAILY [facility] Last Admin: 05/25/18 09:46 Dose: 60 mg Ondansetron HCl (Zofran Injection) 4 mg IVPUSH Q6H PRN PRN Reason: NAUSEA Last Admin: 05/25/18 04:25 Dose: 4 mg Oxycodone HCl (Roxicodone -) 5 mg PO Q6H PRN PRN Reason: PAIN LEVEL 7 - 10 Last Admin: 05/25/18 06:18 Dose: 5 mg Propranolol HCl (Inderal La -) 160 mg PO BID [facility] Last Admin: 05/25/18 09:50 Dose: Not Given Ranitidine HCl (Zantac -) 150 mg PO BID [facility] Last Admin: 05/25/18 09:47 Dose: 150 mg Ranolazine (Ranexa -) 1,000 mg PO BID [facility] Last Admin: 05/25/18 09:46 Dose: 1,000 mg Rosuvastatin Calcium (Crestor -) 10 mg PO [facility] Last Admin: 05/24/18 22:46 Dose: 10 mg - Objective Vital Signs: Vital Signs Temperature 97.9 F 05/25/18 10:57 Pulse Rate 72 05/25/18 10:57 Respiratory Rate 20 05/25/18 10:57 Blood Pressure 138/83 05/25/18 10:57 O2 Sat by Pulse Oximetry (%) 97 05/25/18 09:00 Constitutional: Yes: Calm Eyes: Yes: Conjunctiva Clear HENT: Yes: Atraumatic Neck: Yes: Supple Cardiovascular: Yes: S1, S2 Respiratory: Yes: CTA Bilaterally Gastrointestinal: Yes: Soft Genitourinary: Yes: WNL Musculoskeletal: Yes: WNL Edema: No Neurological: Yes: Oriented Psychiatric: Yes: Oriented Labs: CBC, BMP 05/25/18 07:18 05/25/18 07:18 INR, PTT INR 0.97 (0.83-1.09) 05/25/18 07:18 Problem List - Problems (1) Hyponatremia Code(s): E87.1 - HYPO-OSMOLALITY AND HYPONATREMIA (2) Chest pain Code(s): R07.9 - CHEST PAIN, UNSPECIFIED Qualifiers: Chest pain type: precordial pain Qualified Code(s): R07.2 - Precordial pain (3) Hypertension Code(s): I10 - ESSENTIAL (PRIMARY) HYPERTENSION Qualifiers: Hypertension type: essential hypertension Qualified Code(s): I10 - Essential (primary) hypertension Assessment/Plan Current Medications Generic Name Dose Route Start Last Admin Trade Name Freq PRN Reason Stop Dose Admin Acetaminophen 650 mg 05/24/18 14:58 Tylenol - PO Q6H PRN PAIN LEVEL 1-5 Aspirin 81 mg 05/25/18 10:00 05/25/18 09:47 Asa - PO 81 mg DAILY [facility] Administration Sodium Chloride 1,000 mls @ 75 mls/hr 05/24/18 15:00 05/24/18 15:50 Normal Saline - IV 75 mls/hr ASDIR [facility] Administration Isosorbide Mononitrate 60 mg 05/25/18 10:00 05/25/18 09:46 Imdur - PO 60 mg DAILY [facility] Administration Ondansetron HCl 4 mg 05/24/18 14:48 05/25/18 04:25 Zofran Injection IVPUSH 4 mg Q6H PRN Administration NAUSEA Oxycodone HCl 5 mg 05/24/18 15:01 05/25/18 06:18 Roxicodone - PO 5 mg Q6H PRN Administration PAIN LEVEL 7 - 10 Propranolol HCl 160 mg 05/24/18 22:00 05/25/18 09:50 Inderal La - PO Not Given BID [facility] Ranitidine HCl 150 mg 05/24/18 22:00 05/25/18 09:47 Zantac - PO 150 mg BID [facility] Administration Ranolazine 1,000 mg 05/24/18 22:00 05/25/18 09:46 Ranexa - PO 1,000 mg BID [facility] Administration Rosuvastatin Calcium 10 mg 05/24/18 22:00 05/24/18 22:46 Crestor - PO 10 mg HS [facility] Administration Laboratory Tests 05/25/18 07:18 Potassium 3.3 L Phosphorus 2.1 L Impression 1. hyponatremia 2. chest pain 3. gerd 4. hld 5. depression 6. anxiety 7. htn 8. arthritis Plan - replace phos - replace potassium - cont fluids - sodium improving with saline, pt also has a low urine sodium, findings are consistent with dehydration - pt will have family bring home meds, please review
[2018-05-25] MEDS ORDERED: POTASSIUM CHLORIDE TABS 20 MEQ TABLET.ER (FP) PO ONE (11:22)
--- NOTE | 2018-05-25 13:21 | PN ---
Progress Note, Physician Chief Complaint: awake alert sodium is improving potassium and phosphorous repleted - Current Medication List Current Medications: Active Medications Acetaminophen (Tylenol -) 650 mg PO Q6H PRN PRN Reason: PAIN LEVEL 1-5 Aspirin (Asa -) 81 mg PO DAILY [facility] Last Admin: 05/25/18 09:47 Dose: 81 mg Sodium Chloride (Normal Saline -) 1,000 mls @ 75 mls/hr IV ASDIR [facility] Last Admin: 05/24/18 15:50 Dose: 75 mls/hr Isosorbide Mononitrate (Imdur -) 60 mg PO DAILY [facility] Last Admin: 05/25/18 09:46 Dose: 60 mg Ondansetron HCl (Zofran Injection) 4 mg IVPUSH Q6H PRN PRN Reason: NAUSEA Last Admin: 05/25/18 12:39 Dose: 4 mg Oxycodone HCl (Roxicodone -) 5 mg PO Q6H PRN PRN Reason: PAIN LEVEL 7 - 10 Last Admin: 05/25/18 06:18 Dose: 5 mg Potassium Phos/Sodium Phos (Phos-Nak Packet -) 1 packet PO TID [facility] Stop: 05/27/18 06:01 Propranolol HCl (Inderal La -) 160 mg PO BID [facility] Last Admin: 05/25/18 09:50 Dose: Not Given Ranitidine HCl (Zantac -) 150 mg PO BID [facility] Last Admin: 05/25/18 09:47 Dose: 150 mg Ranolazine (Ranexa -) 1,000 mg PO BID [facility] Last Admin: 05/25/18 09:46 Dose: 1,000 mg Rosuvastatin Calcium (Crestor -) 10 mg PO [facility] Last Admin: 05/24/18 22:46 Dose: 10 mg - Objective Vital Signs: Vital Signs Temperature 97.9 F 05/25/18 10:57 Pulse Rate 72 05/25/18 10:57 Respiratory Rate 20 05/25/18 10:57 Blood Pressure 138/83 05/25/18 10:57 O2 Sat by Pulse Oximetry (%) 97 05/25/18 09:00 Constitutional: Yes: Calm Cardiovascular: Yes: Regular Rate and Rhythm, S1, S2 Respiratory: Yes: CTA Bilaterally Gastrointestinal: Yes: Normal Bowel Sounds, Soft Edema: No Neurological: Yes: Alert Labs: CBC, BMP 05/25/18 07:18 05/25/18 07:18 INR, PTT INR 0.97 (0.83-1.09) 05/25/18 07:18 Problem List - Problems (1) Hyponatremia Assessment/Plan: ivf to conitnue recheck lytes in AM renal eval noted recheck sodium now 129 urine lytes Code(s): E87.1 - HYPO-OSMOLALITY AND HYPONATREMIA (2) Chest pain Assessment/Plan: telemtry echo left ventricle systolic function normal and ejection fraction normal ekg see dr french- consjulted lipid profile statin aspirin inderal Code(s): R07.9 - CHEST PAIN, UNSPECIFIED Qualifiers: Chest pain type: precordial pain Qualified Code(s): R07.2 - Precordial pain
--- NOTE | 2018-05-25 14:33 | PN ---
Progress Note (short form) - Note Progress Note: repeatr BMP ordered now will recheck potassium and phosphorous and sodium pending discharge Problem List - Problems (1) Hyponatremia Code(s): E87.1 - HYPO-OSMOLALITY AND HYPONATREMIA (2) Chest pain Code(s): R07.9 - CHEST PAIN, UNSPECIFIED Qualifiers: Chest pain type: precordial pain Qualified Code(s): R07.2 - Precordial pain
[2018-05-25] MEDS: NAPH,MB-DB/K PH,MBDB POWDER PACKET PO SCH ×2 (14:34→21:13)
[2018-05-25] MEDS: ACETAMINOPHEN 325 MG TABLET (FP) PO PRN ×2 (14:34→21:29)
[2018-05-25 17:03] LABS: ALBUMIN 3.3 g/dl (3.4-5.0); ALK PHOS 61 U/L (45-117); BILIRUBIN,TOTAL 0.4 mg/dL (0.2-1); CALCIUM 7.6 mg/dL (8.5-10.1); CHLORIDE 90 mmol/L (98-107); CO2 27 mmol/L (21-32); CREATININE 0.6 mg/dL (0.55-1.3); GLUCOSE,RANDOM 130 mg/dL (74-106); SGOT/AST 48 U/L (15-37); SGPT/ALT 26 U/L (13-61)
[2018-05-25 17:04] LABS: ANION GAP 8 MMOL/L (8-16); BLOOD UREA NITROGEN 5 mg/dL (7-18); POTASSIUM 3.3 mmol/L (3.5-5.1); SODIUM 125 mmol/L (136-145); TOT PROT 6.1 g/dl (6.4-8.2)
[2018-05-25] MEDS ORDERED: SODIUM CHLORIDE 0.9%/KCL 20 MEQ/1,000 ML INFUS.BAG IV SCH (18:15)
[2018-05-25] MEDS: ROSUVASTATIN CA 10 MG TABLET (FP) PO SCH (21:13)
[2018-05-25] MEDS ORDERED: PT OWN MED DRAWER 7, Y5N ONE ×2 (21:36→21:52)
[2018-05-26] MEDS: oxyCODONE HCL 5 MG TABLET PO PRN ×3 (06:26→21:53)
[2018-05-26] MEDS: NAPH,MB-DB/K PH,MBDB POWDER PACKET PO SCH ×3 (06:26→21:54)
[2018-05-26] MEDS: ONDANSETRON 4 MG/2 ML VIAL IVPUSH PRN ×2 (06:26→16:30)
[2018-05-26 07:22] LABS: ALBUMIN 3.4 g/dl (3.4-5.0); ALK PHOS 62 U/L (45-117); ANION GAP 7 MMOL/L (8-16); BILIRUBIN,TOTAL 0.4 mg/dL (0.2-1); CHLORIDE 93 mmol/L (98-107); CO2 28 mmol/L (21-32); CREATININE 0.4 mg/dL (0.55-1.3); GLUCOSE,RANDOM 132 mg/dL (74-106); POTASSIUM 3.4 mmol/L (3.5-5.1); SGOT/AST 52 U/L (15-37); SGPT/ALT 32 U/L (13-61); SODIUM 128 mmol/L (136-145); TOT PROT 6.3 g/dl (6.4-8.2)
[2018-05-26 07:32] LABS: BLOOD UREA NITROGEN 2 mg/dL (7-18)
--- NOTE | 2018-05-26 08:50 | PN ---
Progress Note, Physician Chief Complaint: Chest Pain Hypokalemia Hyponatremia History of Present Illness: NAD pain improving Na+, K+ improving little hypertensive this AM - Current Medication List Current Medications: Active Medications Acetaminophen (Tylenol -) 650 mg PO Q6H PRN PRN Reason: PAIN LEVEL 1-5 Last Admin: 05/25/18 21:29 Dose: 650 mg Aspirin (Asa -) 81 mg PO DAILY [facility] Last Admin: 05/25/18 09:47 Dose: 81 mg Potassium Chloride/Sodium Chloride (Ns+20 Meq Kcl -) 20 meq in 1,000 mls @ 50 mls/hr IV ASDIR [facility] Isosorbide Mononitrate (Imdur -) 60 mg PO DAILY [facility] Last Admin: 05/25/18 09:46 Dose: 60 mg Ondansetron HCl (Zofran Injection) 4 mg IVPUSH Q6H PRN PRN Reason: NAUSEA Last Admin: 05/26/18 06:26 Dose: 4 mg Oxycodone HCl (Roxicodone -) 5 mg PO Q6H PRN PRN Reason: PAIN LEVEL 7 - 10 Last Admin: 05/26/18 06:26 Dose: 5 mg Potassium Chloride (K-Dur -) 40 meq PO ONCE ONE Stop: 05/26/18 09:16 Potassium Phos/Sodium Phos (Phos-Nak Packet -) 1 packet PO TID [facility] Stop: 05/27/18 06:01 Last Admin: 05/26/18 06:26 Dose: 1 packet Propranolol HCl (Inderal La -) 160 mg PO BID [facility] Last Admin: 05/25/18 21:53 Dose: 160 mg Ranitidine HCl (Zantac -) 150 mg PO BID [facility] Last Admin: 05/25/18 21:13 Dose: 150 mg Ranolazine (Ranexa -) 1,000 mg PO BID [facility] Last Admin: 05/25/18 21:13 Dose: 1,000 mg Rosuvastatin Calcium (Crestor -) 10 mg PO HS [facility] Last Admin: 05/25/18 21:13 Dose: 10 mg - Objective Vital Signs: Vital Signs Temperature 97.9 F 05/26/18 06:00 Pulse Rate 74 05/26/18 06:00 Respiratory Rate 20 05/26/18 06:00 Blood Pressure 176/88 H 05/26/18 06:00 O2 Sat by Pulse Oximetry (%) 95 05/25/18 21:00 Constitutional: Yes: Well Nourished, No Distress, Calm Cardiovascular: Yes: Regular Rate and Rhythm Respiratory: Yes: Regular Gastrointestinal: Yes: Normal Bowel Sounds, Soft Genitourinary: Yes: WNL Musculoskeletal: Yes: WNL Extremities: Yes: WNL Edema: No Peripheral Pulses WNL: Yes Neurological: Yes: Alert, Oriented Psychiatric: Yes: Alert, Oriented Labs: CBC, BMP 05/25/18 07:18 05/26/18 05:30 INR, PTT INR 0.97 (0.83-1.09) 05/25/18 07:18 Problem List - Problems (1) Hypokalemia Assessment/Plan: -improved -KCl 40 meq po once -nephrology on board -repeat labs in AM Code(s): E87.6 - HYPOKALEMIA (2) Chest pain Assessment/Plan: -Cardiology on board -Cardiac workup negative -Echo unremarkable -Right breast prosthesis? Code(s): R07.9 - CHEST PAIN, UNSPECIFIED Qualifiers: Chest pain type: precordial pain Qualified Code(s): R07.2 - Precordial pain (3) Hypertension Assessment/Plan: -decrease fluids Code(s): I10 - ESSENTIAL (PRIMARY) HYPERTENSION Qualifiers: Hypertension type: essential hypertension Qualified Code(s): I10 - Essential (primary) hypertension (4) Hyponatremia Assessment/Plan: -gradually improving -On N/S- decrease rate to 50 from 75ml/hr -Cortisol and urine Osm normal -NaCl tabs? Code(s): E87.1 - HYPO-OSMOLALITY AND HYPONATREMIA Assessment/Plan see problem list Physical therapy DVT prophylaxis
[2018-05-26] MEDS ORDERED: POTASSIUM CHLORIDE TABS 20 MEQ TABLET.ER (FP) PO ONE (09:15)
[2018-05-26] MEDS ORDERED: PT OWN MED DRAWER 7, Y5N ONE (09:19)
[2018-05-26] MEDS: RANOLAZINE E.R. 1,000 MG TABLET (FP) PO SCH ×2 (09:40→21:53)
[2018-05-26] MEDS: SODIUM CHLORIDE 0.9%/KCL 20 MEQ/1,000 ML INFUS.BAG IV SCH (09:40)
[2018-05-26] MEDS: ASPIRIN 81 MG CHEWABLE TABLETS PO SCH (09:40)
[2018-05-26] MEDS: RANITIDINE HCL 150 MG TABLET (FP) PO SCH ×2 (09:41→21:54)
[2018-05-26] MEDS: ISOSORBIDE MONONITRATE 60 MG TAB.SR.24H (FP) PO SCH (09:41)
[2018-05-26] MEDS: HEPARIN NA (PORCINE) 5,000 UNITS/ML 1ML VIAL SQ SCH ×2 (09:41→21:54)
--- NOTE | 2018-05-26 10:01 | PN ---
Progress Note, Physician Chief Complaint: Events noted. Not in distress History of Present Illness: Patient was seen and examined. Awake and alert. Chart was reviewed Denies chest pain. SOB or palpitations - Current Medication List Current Medications: Active Medications Acetaminophen (Tylenol -) 650 mg PO Q6H PRN PRN Reason: PAIN LEVEL 1-5 Last Admin: 05/25/18 21:29 Dose: 650 mg Aspirin (Asa -) 81 mg PO DAILY [facility] Last Admin: 05/26/18 09:40 Dose: 81 mg Heparin Sodium (Porcine) (Heparin -) 5,000 unit SQ BID [facility] Last Admin: 05/26/18 09:41 Dose: 5,000 unit Potassium Chloride/Sodium Chloride (Ns+20 Meq Kcl -) 20 meq in 1,000 mls @ 50 mls/hr IV ASDIR [facility] Last Admin: 05/26/18 09:40 Dose: 50 mls/hr Isosorbide Mononitrate (Imdur -) 60 mg PO DAILY [facility] Last Admin: 05/26/18 09:41 Dose: 60 mg Ondansetron HCl (Zofran Injection) 4 mg IVPUSH Q6H PRN PRN Reason: NAUSEA Last Admin: 05/26/18 06:26 Dose: 4 mg Oxycodone HCl (Roxicodone -) 5 mg PO Q6H PRN PRN Reason: PAIN LEVEL 7 - 10 Last Admin: 05/26/18 06:26 Dose: 5 mg Potassium Phos/Sodium Phos (Phos-Nak Packet -) 1 packet PO TID [facility] Stop: 05/27/18 06:01 Last Admin: 05/26/18 06:26 Dose: 1 packet Propranolol HCl (Inderal La -) 160 mg PO BID [facility] Last Admin: 05/26/18 09:42 Dose: 160 mg Ranitidine HCl (Zantac -) 150 mg PO BID [facility] Last Admin: 05/26/18 09:41 Dose: 150 mg Ranolazine (Ranexa -) 1,000 mg PO BID [facility] Last Admin: 05/26/18 09:40 Dose: 1,000 mg Rosuvastatin Calcium (Crestor -) 10 mg PO HS [facility] Last Admin: 05/25/18 21:13 Dose: 10 mg - Objective Vital Signs: Vital Signs Temperature 98.1 F 05/26/18 09:08 Pulse Rate 76 05/26/18 09:08 Respiratory Rate 20 05/26/18 09:08 Blood Pressure 166/91 05/26/18 09:08 O2 Sat by Pulse Oximetry (%) 95 05/25/18 21:00 Eyes: Yes: PERRL HENT: Yes: Atraumatic Neck: Yes: Supple Cardiovascular: Yes: Regular Rate and Rhythm, S1, S2 Respiratory: Yes: CTA Bilaterally Gastrointestinal: Yes: Normal Bowel Sounds, Soft. No: Tenderness Edema: No Additional Findings/Remarks: - Review of Systems Constitutional: denies: Chills, Fever Cardiovascular: (+) Chest Pain, denies: Palpitations, Shortness of Breath Respiratory: denies: Cough, Hemoptysis, Orthopnea, PND, SOB, SOB on Exertion Gastrointestinal: denies: Abdominal Pain, Constipation, Diarrhea, Melena, Nausea , Rectal Bleeding, Vomiting Musculoskeletal: denies: Joint Pain Neurological: denies: Dizziness, Headache, Seizure, Syncope Labs: CBC, BMP 05/25/18 07:18 05/26/18 05:30 INR, PTT INR 0.97 (0.83-1.09) 05/25/18 07:18 Problem List - Problems (1) Endothelial dysfunction of coronary artery Code(s): I99.8 - OTHER DISORDER OF CIRCULATORY SYSTEM (2) Hyponatremia Code(s): E87.1 - HYPO-OSMOLALITY AND HYPONATREMIA (3) Mitral valve prolapse syndrome Code(s): I34.1 - NONRHEUMATIC MITRAL (VALVE) PROLAPSE (4) Chest pain Code(s): R07.9 - CHEST PAIN, UNSPECIFIED Qualifiers: Chest pain type: precordial pain Qualified Code(s): R07.2 - Precordial pain (5) Hyperlipemia Code(s): E78.5 - HYPERLIPIDEMIA, UNSPECIFIED Qualifiers: Hyperlipidemia type: pure hypercholesterolemia Qualified Code(s): E78.00 - Pure hypercholesterolemia, unspecified; E78.0 - Pure hypercholesterolemia (6) Hypertension Code(s): I10 - ESSENTIAL (PRIMARY) HYPERTENSION Qualifiers: Hypertension type: essential hypertension Qualified Code(s): I10 - Essential (primary) hypertension Assessment/Plan 1. Recurrent chest pain syndrome in a patient with known history of coronary artery disease related to endothelial dysfunction 2. Mitral valve prolapse syndrome. 3. Hypertensive cardiovascular disease. 4. Hypercholesterolemia. 5. Hyponatremia 6. Carotid stenosis mild in severity. 7. History of migraine headaches. 8. History of hemochromatosis. 9. Degenerative lumbosacral disc disease with chronic low back pain syndrome. 10. History of traumatic ankle fracture post-ORIF PLAN: 1. Follow electrolytes 2. Continue Inderal LA 160 mg BID, Ranexa 1000 mg BID, Imdur 60 mg QD, Crestor 20 mg QD and Ecotrin 81 mg QD 3. Add ARB - Losartan 50 mg QD and uptitrate. Benicar is not on formulary. As outpatient it can be resumed and uptitrated 3. Echocardiography reviewed 4. Nuclear Stress testing may be performed as outpatient, f/u with Dr. Holder in office Further plans are to follow Merritt Watkins MD
[2018-05-26] MEDS: LOSARTAN POTASSIUM 50 MG TABLET (FP) PO SCH (10:44)
[2018-05-26] MEDS: NYSTATIN/TRIAMCINOLONE TOPICAL OINTMENT 15 GM TUBE TP SCH ×2 (13:01→22:03)
--- NOTE | 2018-05-26 16:04 | PN ---
Progress Note (short form) - Note Progress Note: problems 1. hyponatremia 2. chest pain 3. gerd 4. hld 5. depression 6. anxiety 7. htn 8. arthritis Current Medications Acetaminophen (Tylenol -) 650 mg PO Q6H PRN PRN Reason: PAIN LEVEL 1-5 Last Admin: 05/25/18 21:29 Dose: 650 mg Aspirin (Asa -) 81 mg PO DAILY [facility] Last Admin: 05/26/18 09:40 Dose: 81 mg Heparin Sodium (Porcine) (Heparin -) 5,000 unit SQ BID [facility] Last Admin: 05/26/18 09:41 Dose: 5,000 unit Potassium Chloride/Sodium Chloride (Ns+20 Meq Kcl -) 20 meq in 1,000 mls @ 50 mls/hr IV ASDIR [facility] Last Admin: 05/26/18 09:40 Dose: 50 mls/hr Isosorbide Mononitrate (Imdur -) 60 mg PO DAILY [facility] Last Admin: 05/26/18 09:41 Dose: 60 mg Losartan Potassium (Cozaar -) 50 mg PO DAILY [facility] Last Admin: 05/26/18 10:44 Dose: 50 mg Nystatin/Triamcinolone Acetonide (Mycolog Ii Ointment -) 1 applic TP BID [facility] Last Admin: 05/26/18 13:01 Dose: 1 applic Ondansetron HCl (Zofran Injection) 4 mg IVPUSH Q6H PRN PRN Reason: NAUSEA Last Admin: 05/26/18 06:26 Dose: 4 mg Oxycodone HCl (Roxicodone -) 5 mg PO Q6H PRN PRN Reason: PAIN LEVEL 7 - 10 Last Admin: 05/26/18 13:05 Dose: 5 mg Potassium Phos/Sodium Phos (Phos-Nak Packet -) 1 packet PO TID [facility] Stop: 05/27/18 06:01 Last Admin: 05/26/18 13:02 Dose: 1 packet Propranolol HCl (Inderal La -) 160 mg PO BID [facility] Last Admin: 05/26/18 09:42 Dose: 160 mg Ranitidine HCl (Zantac -) 150 mg PO BID [facility] Last Admin: 05/26/18 09:41 Dose: 150 mg Ranolazine (Ranexa -) 1,000 mg PO BID [facility] Last Admin: 05/26/18 09:40 Dose: 1,000 mg Rosuvastatin Calcium (Crestor -) 10 mg PO HS [facility] Last Admin: 05/25/18 21:13 Dose: 10 mg Last Vital Signs Temp Pulse Resp BP Pulse Ox 98.1 F 72 20 137/82 97 05/26/18 14:00 05/26/18 14:00 05/26/18 14:00 05/26/18 14:00 05/26/18 09:00 Lungs clear Heart reg Abd soft nontender Ext min edema CBC, BMP 05/25/18 07:18 05/26/18 05:30 IMP- hyponatremia on saline improving hypokalemia Plan - replace phos - replace potassium - cont fluids - sodium improving with saline, pt also has a low urine sodium, findings are consistent with dehydration - pt will have family bring home meds, please review
[2018-05-26 19:47] LABS: URINE APPEARANCE CLEAR; URINE BILIRUBIN NEGATIVE (<2.0 mg/dL); URINE COLOR DKYELLOW; URINE GLUCOSE (UA) NEGATIVE (NEGATIVE); URINE KETONE NEGATIVE (NEGATIVE); URINE LEUK ESTERASE 3+ (NEGATIVE); URINE NITRITE NEGATIVE (NEGATIVE); URINE PROTEIN NEGATIVE (NEGATIVE)
[2018-05-26 19:52] LABS: EPI CELLS RARE /HPF (FEW); URINE MUCUS RARE
[2018-05-26] MEDS: ROSUVASTATIN CA 10 MG TABLET (FP) PO SCH (22:25)
[2018-05-27] MEDS: NAPH,MB-DB/K PH,MBDB POWDER PACKET PO SCH (06:57)
[2018-05-27] MEDS: oxyCODONE HCL 5 MG TABLET PO PRN ×2 (07:38→14:40)
[2018-05-27 07:48] LABS: ALBUMIN 3.4 g/dl (3.4-5.0); ALK PHOS 62 U/L (45-117); ANION GAP 6 MMOL/L (8-16); BILIRUBIN,TOTAL 0.4 mg/dL (0.2-1); CALCIUM 8.4 mg/dL (8.5-10.1); CHLORIDE 98 mmol/L (98-107); CO2 29 mmol/L (21-32); CREATININE 0.4 mg/dL (0.55-1.3); GLUCOSE,RANDOM 125 mg/dL (74-106); POTASSIUM 4.6 mmol/L (3.5-5.1); SGOT/AST 37 U/L (15-37); SGPT/ALT 34 U/L (13-61); SODIUM 133 mmol/L (136-145); TOT PROT 6.4 g/dl (6.4-8.2); URIC ACID 1.1 mg/dL (2.6-7.2)
[2018-05-27 07:56] LABS: BLOOD UREA NITROGEN 2 mg/dL (7-18)
--- NOTE | 2018-05-27 09:51 | PN ---
Progress Note, Physician Chief Complaint: Events noted. Not in distress History of Present Illness: Patient was seen and examined. Awake and alert. Chart was reviewed Denies chest pain. SOB or palpitations - Current Medication List Current Medications: Active Medications Acetaminophen (Tylenol -) 650 mg PO Q6H PRN PRN Reason: PAIN LEVEL 1-5 Last Admin: 05/25/18 21:29 Dose: 650 mg Aspirin (Asa -) 81 mg PO DAILY [facility] Last Admin: 05/26/18 09:40 Dose: 81 mg Heparin Sodium (Porcine) (Heparin -) 5,000 unit SQ BID [facility] Last Admin: 05/26/18 21:54 Dose: 5,000 unit Potassium Chloride/Sodium Chloride (Ns+20 Meq Kcl -) 20 meq in 1,000 mls @ 50 mls/hr IV ASDIR [facility] Last Admin: 05/26/18 09:40 Dose: 50 mls/hr Isosorbide Mononitrate (Imdur -) 60 mg PO DAILY [facility] Last Admin: 05/26/18 09:41 Dose: 60 mg Losartan Potassium (Cozaar -) 50 mg PO DAILY [facility] Last Admin: 05/26/18 10:44 Dose: 50 mg Nystatin/Triamcinolone Acetonide (Mycolog Ii Ointment -) 1 applic TP BID [facility] Last Admin: 05/26/18 22:03 Dose: 1 applic Ondansetron HCl (Zofran Injection) 4 mg IVPUSH Q6H PRN PRN Reason: NAUSEA Last Admin: 05/26/18 16:30 Dose: 4 mg Oxycodone HCl (Roxicodone -) 5 mg PO Q6H PRN PRN Reason: PAIN LEVEL 7 - 10 Last Admin: 05/27/18 07:38 Dose: 5 mg Propranolol HCl (Inderal La -) 160 mg PO BID [facility] Last Admin: 05/26/18 21:54 Dose: 160 mg Ranitidine HCl (Zantac -) 150 mg PO BID [facility] Last Admin: 05/26/18 21:54 Dose: 150 mg Ranolazine (Ranexa -) 1,000 mg PO BID [facility] Last Admin: 05/26/18 21:53 Dose: 1,000 mg Rosuvastatin Calcium (Crestor -) 10 mg PO HS [facility] Last Admin: 05/26/18 22:25 Dose: 10 mg - Objective Vital Signs: Vital Signs Temperature 98 F 02/24/19 09:38 Pulse Rate 79 05/27/18 09:38 Respiratory Rate 20 05/27/18 09:38 Blood Pressure 139/74 05/27/18 09:38 O2 Sat by Pulse Oximetry (%) 97 05/26/18 21:00 Eyes: Yes: PERRL HENT: Yes: Atraumatic Neck: Yes: Supple Cardiovascular: Yes: Regular Rate and Rhythm, S1, S2 Respiratory: Yes: CTA Bilaterally Gastrointestinal: Yes: Normal Bowel Sounds, Soft. No: Tenderness Edema: No Additional Findings/Remarks: - Review of Systems Constitutional: denies: Chills, Fever Cardiovascular: (+) Chest Pain, denies: Palpitations, Shortness of Breath Respiratory: denies: Cough, Hemoptysis, Orthopnea, PND, SOB, SOB on Exertion Gastrointestinal: denies: Abdominal Pain, Constipation, Diarrhea, Melena, Nausea , Rectal Bleeding, Vomiting Musculoskeletal: denies: Joint Pain Neurological: denies: Dizziness, Headache, Seizure, Syncope Labs: CBC, BMP 05/25/18 07:18 05/27/18 05:30 INR, PTT INR 0.97 (0.83-1.09) 05/25/18 07:18 Problem List - Problems (1) Endothelial dysfunction of coronary artery Code(s): I99.8 - OTHER DISORDER OF CIRCULATORY SYSTEM (2) Hyponatremia Code(s): E87.1 - HYPO-OSMOLALITY AND HYPONATREMIA (3) Mitral valve prolapse syndrome Code(s): I34.1 - NONRHEUMATIC MITRAL (VALVE) PROLAPSE (4) Chest pain Code(s): R07.9 - CHEST PAIN, UNSPECIFIED Qualifiers: Chest pain type: precordial pain Qualified Code(s): R07.2 - Precordial pain (5) Hyperlipemia Code(s): E78.5 - HYPERLIPIDEMIA, UNSPECIFIED Qualifiers: Hyperlipidemia type: pure hypercholesterolemia Qualified Code(s): E78.00 - Pure hypercholesterolemia, unspecified; E78.0 - Pure hypercholesterolemia (6) Hypertension Code(s): I10 - ESSENTIAL (PRIMARY) HYPERTENSION Qualifiers: Hypertension type: essential hypertension Qualified Code(s): I10 - Essential (primary) hypertension Assessment/Plan 1. Recurrent chest pain syndrome in a patient with known history of coronary artery disease related to endothelial dysfunction 2. Mitral valve prolapse syndrome. 3. Hypertensive cardiovascular disease. 4. Hypercholesterolemia. 5. Hyponatremia 6. Carotid stenosis mild in severity. 7. History of migraine headaches. 8. History of hemochromatosis. 9. Degenerative lumbosacral disc disease with chronic low back pain syndrome. 10. History of traumatic ankle fracture post-ORIF PLAN: 1. Follow electrolytes 2. Continue Inderal LA 160 mg BID, Ranexa 1000 mg BID, Imdur 60 mg QD, Crestor 20 mg QD and Ecotrin 81 mg QD 3. Losartan 50 mg QD and uptitrate. Benicar is not on formulary. As outpatient. Benicar can be resumed and uptitrated 4. Nuclear Stress testing may be performed as outpatient, f/u with Dr. Holder in office Further plans are to follow Merritt Watkins MD
[2018-05-27] MEDS: ISOSORBIDE MONONITRATE 60 MG TAB.SR.24H (FP) PO SCH (10:14)
[2018-05-27] MEDS: RANOLAZINE E.R. 1,000 MG TABLET (FP) PO SCH ×2 (10:14→21:48)
[2018-05-27] MEDS: RANITIDINE HCL 150 MG TABLET (FP) PO SCH ×2 (10:14→21:49)
[2018-05-27] MEDS: ASPIRIN 81 MG CHEWABLE TABLETS PO SCH (10:14)
[2018-05-27] MEDS: HEPARIN NA (PORCINE) 5,000 UNITS/ML 1ML VIAL SQ SCH ×2 (10:15→21:49)
[2018-05-27] MEDS: LOSARTAN POTASSIUM 50 MG TABLET (FP) PO SCH (10:15)
[2018-05-27] MEDS: NYSTATIN/TRIAMCINOLONE TOPICAL OINTMENT 15 GM TUBE TP SCH ×2 (10:16→21:50)
--- NOTE | 2018-05-27 12:51 | PN ---
Progress Note, Physician Chief Complaint: Chest Pain Hypokalemia Hyponatremia History of Present Illness: NAD pain improving Na+, K+ improving little hypertensive this AM, improved after meds - Current Medication List Current Medications: Active Medications Acetaminophen (Tylenol -) 650 mg PO Q6H PRN PRN Reason: PAIN LEVEL 1-5 Last Admin: 05/25/18 21:29 Dose: 650 mg Aspirin (Asa -) 81 mg PO DAILY [facility] Last Admin: 05/27/18 10:14 Dose: 81 mg Heparin Sodium (Porcine) (Heparin -) 5,000 unit SQ BID [facility] Last Admin: 05/27/18 10:15 Dose: 5,000 unit Potassium Chloride/Sodium Chloride (Ns+20 Meq Kcl -) 20 meq in 1,000 mls @ 50 mls/hr IV ASDIR [facility] Last Admin: 05/26/18 09:40 Dose: 50 mls/hr Isosorbide Mononitrate (Imdur -) 60 mg PO DAILY [facility] Last Admin: 05/27/18 10:14 Dose: 60 mg Losartan Potassium (Cozaar -) 50 mg PO DAILY [facility] Last Admin: 05/27/18 10:15 Dose: 50 mg Nystatin/Triamcinolone Acetonide (Mycolog Ii Ointment -) 1 applic TP BID [facility] Last Admin: 05/27/18 10:16 Dose: 1 applic Ondansetron HCl (Zofran Injection) 4 mg IVPUSH Q6H PRN PRN Reason: NAUSEA Last Admin: 05/26/18 16:30 Dose: 4 mg Oxycodone HCl (Roxicodone -) 5 mg PO Q6H PRN PRN Reason: PAIN LEVEL 7 - 10 Last Admin: 05/27/18 07:38 Dose: 5 mg Propranolol HCl (Inderal La -) 160 mg PO BID [facility] Last Admin: 05/27/18 10:13 Dose: 160 mg Ranitidine HCl (Zantac -) 150 mg PO BID [facility] Last Admin: 05/27/18 10:14 Dose: 150 mg Ranolazine (Ranexa -) 1,000 mg PO BID [facility] Last Admin: 05/27/18 10:14 Dose: 1,000 mg Rosuvastatin Calcium (Crestor -) 10 mg PO HS [facility] Last Admin: 05/26/18 22:25 Dose: 10 mg - Objective Vital Signs: Vital Signs Temperature 98 F 05/27/18 09:38 Pulse Rate 79 05/27/18 09:38 Respiratory Rate 20 05/27/18 09:38 Blood Pressure 139/74 05/27/18 09:38 O2 Sat by Pulse Oximetry (%) 97 05/26/18 21:00 Constitutional: Yes: Well Nourished, No Distress, Calm Cardiovascular: Yes: Regular Rate and Rhythm Respiratory: Yes: Regular Gastrointestinal: Yes: Normal Bowel Sounds, Soft Genitourinary: Yes: WNL Musculoskeletal: Yes: Muscle Weakness Extremities: Yes: WNL Edema: No Peripheral Pulses WNL: Yes Neurological: Yes: Alert, Oriented Psychiatric: Yes: Alert, Oriented Labs: CBC, BMP 05/25/18 07:18 05/27/18 05:30 INR, PTT INR 0.97 (0.83-1.09) 05/25/18 07:18 Problem List - Problems (1) Hypokalemia Assessment/Plan: -improved -nephrology on board -repeat labs in AM Code(s): E87.6 - HYPOKALEMIA (2) Chest pain Assessment/Plan: -Cardiology on board -Cardiac workup negative -Echo unremarkable -Right breast prosthesis? Code(s): R07.9 - CHEST PAIN, UNSPECIFIED Qualifiers: Chest pain type: precordial pain Qualified Code(s): R07.2 - Precordial pain (3) Hypertension Assessment/Plan: -continue gentle IVF -monitor trend Code(s): I10 - ESSENTIAL (PRIMARY) HYPERTENSION Qualifiers: Hypertension type: essential hypertension Qualified Code(s): I10 - Essential (primary) hypertension (4) Hyponatremia Assessment/Plan: -gradually improving -On N/S+KCl 20 meq @ 50 cc/hr -Cortisol and urine Osm normal -nephrology on board -monitor trend Code(s): E87.1 - HYPO-OSMOLALITY AND HYPONATREMIA Assessment/Plan see problem list Physical therapy DVT prophylaxis
[2018-05-27] MEDS: ONDANSETRON 4 MG/2 ML VIAL IVPUSH PRN (18:30)
[2018-05-27] MEDS: ROSUVASTATIN CA 10 MG TABLET (FP) PO SCH (21:49)
[2018-05-27] MEDS: SODIUM CHLORIDE 0.9%/KCL 20 MEQ/1,000 ML INFUS.BAG IV SCH (21:50)
--- NOTE | 2018-05-27 22:26 | PN ---
Progress Note (short form) - Note Progress Note: problems 1. hyponatremia 2. chest pain 3. gerd 4. hld 5. depression 6. anxiety 7. htn 8. arthritis Active Medications Acetaminophen (Tylenol -) 650 mg PO Q6H PRN PRN Reason: PAIN LEVEL 1-5 Last Admin: 05/25/18 21:29 Dose: 650 mg Aspirin (Asa -) 81 mg PO DAILY [facility] Last Admin: 05/27/18 10:14 Dose: 81 mg Heparin Sodium (Porcine) (Heparin -) 5,000 unit SQ BID [facility] Last Admin: 05/27/18 21:49 Dose: 5,000 unit Potassium Chloride/Sodium Chloride (Ns+20 Meq Kcl -) 20 meq in 1,000 mls @ 50 mls/hr IV ASDIR [facility] Last Admin: 05/27/18 21:50 Dose: 50 mls/hr Isosorbide Mononitrate (Imdur -) 60 mg PO DAILY [facility] Last Admin: 05/27/18 10:14 Dose: 60 mg Losartan Potassium (Cozaar -) 50 mg PO DAILY [facility] Last Admin: 05/27/18 10:15 Dose: 50 mg Nystatin/Triamcinolone Acetonide (Mycolog Ii Ointment -) 1 applic TP BID [facility] Last Admin: 05/27/18 21:50 Dose: 1 applic Ondansetron HCl (Zofran Injection) 4 mg IVPUSH Q6H PRN PRN Reason: NAUSEA Last Admin: 05/27/18 18:30 Dose: 4 mg Oxycodone HCl (Roxicodone -) 5 mg PO Q6H PRN PRN Reason: PAIN LEVEL 7 - 10 Last Admin: 05/27/18 14:40 Dose: 5 mg Propranolol HCl (Inderal La -) 160 mg PO BID [facility] Last Admin: 05/27/18 21:51 Dose: 160 mg Ranitidine HCl (Zantac -) 150 mg PO BID [facility] Last Admin: 05/27/18 21:49 Dose: 150 mg Ranolazine (Ranexa -) 1,000 mg PO BID [facility] Last Admin: 05/27/18 21:48 Dose: 1,000 mg Rosuvastatin Calcium (Crestor -) 10 mg PO HS [facility] Last Admin: 05/27/18 21:49 Dose: 10 mg Last Vital Signs Temp Pulse Resp BP Pulse Ox 97.7 F 78 18 155/86 97 05/27/18 18:33 05/27/18 18:33 05/27/18 18:33 05/27/18 18:33 05/27/18 09:00 Lungs clear Heart reg Abd soft nontender Ext min edema CBC, BMP 05/25/18 07:18 05/26/18 05:30 IMP- hyponatremia on saline improving still hypokalemia Plan - replace phos - replace potassium
[2018-05-28] MEDS: oxyCODONE HCL 5 MG TABLET PO PRN ×3 (01:59→17:24)
[2018-05-28 06:34] LABS: ALBUMIN 3.6 g/dl (3.4-5.0); ALK PHOS 71 U/L (45-117); ANION GAP 6 MMOL/L (8-16); BILIRUBIN,TOTAL 0.5 mg/dL (0.2-1); BLOOD UREA NITROGEN 4 mg/dL (7-18); CALCIUM 8.7 mg/dL (8.5-10.1); CHLORIDE 96 mmol/L (98-107); CO2 30 mmol/L (21-32); CREATININE 0.6 mg/dL (0.55-1.3); GLUCOSE,RANDOM 124 mg/dL (74-106); POTASSIUM 4.3 mmol/L (3.5-5.1); SGOT/AST 33 U/L (15-37); SGPT/ALT 34 U/L (13-61); SODIUM 132 mmol/L (136-145); TOT PROT 6.4 g/dl (6.4-8.2)
[2018-05-28] MEDS: ACETAMINOPHEN 325 MG TABLET (FP) PO PRN ×2 (06:35→17:22)
[2018-05-28] MEDS: SODIUM CHLORIDE 0.9%/KCL 20 MEQ/1,000 ML INFUS.BAG IV SCH (08:58)
[2018-05-28] MEDS: ASPIRIN 81 MG CHEWABLE TABLETS PO SCH (09:21)
[2018-05-28] MEDS: ISOSORBIDE MONONITRATE 60 MG TAB.SR.24H (FP) PO SCH (09:21)
[2018-05-28] MEDS: LOSARTAN POTASSIUM 50 MG TABLET (FP) PO SCH (09:21)
[2018-05-28] MEDS: RANOLAZINE E.R. 1,000 MG TABLET (FP) PO SCH ×2 (09:21→21:46)
[2018-05-28] MEDS: RANITIDINE HCL 150 MG TABLET (FP) PO SCH ×2 (09:21→21:46)
[2018-05-28] MEDS: NYSTATIN/TRIAMCINOLONE TOPICAL OINTMENT 15 GM TUBE TP SCH ×2 (09:22→23:50)
[2018-05-28] MEDS: HEPARIN NA (PORCINE) 5,000 UNITS/ML 1ML VIAL SQ SCH ×2 (09:40→21:44)
--- NOTE | 2018-05-28 09:49 | PN ---
Progress Note, Physician History of Present Illness: Chest discomfort and dyspnea resolved. - Current Medication List Current Medications: Active Medications Acetaminophen (Tylenol -) 650 mg PO Q6H PRN PRN Reason: PAIN LEVEL 1-5 Last Admin: 05/28/18 06:35 Dose: 650 mg Aspirin (Asa -) 81 mg PO DAILY [facility] Last Admin: 05/28/18 09:21 Dose: 81 mg Heparin Sodium (Porcine) (Heparin -) 5,000 unit SQ BID [facility] Last Admin: 05/28/18 09:40 Dose: 5,000 unit Potassium Chloride/Sodium Chloride (Ns+20 Meq Kcl -) 20 meq in 1,000 mls @ 50 mls/hr IV ASDIR [facility] Last Admin: 05/28/18 08:58 Dose: Not Given Isosorbide Mononitrate (Imdur -) 60 mg PO DAILY [facility] Last Admin: 05/28/18 09:21 Dose: 60 mg Losartan Potassium (Cozaar -) 50 mg PO DAILY [facility] Last Admin: 05/28/18 09:21 Dose: 50 mg Nystatin/Triamcinolone Acetonide (Mycolog Ii Ointment -) 1 applic TP BID [facility] Last Admin: 05/28/18 09:22 Dose: 1 applic Ondansetron HCl (Zofran Injection) 4 mg IVPUSH Q6H PRN PRN Reason: NAUSEA Last Admin: 05/27/18 18:30 Dose: 4 mg Oxycodone HCl (Roxicodone -) 5 mg PO Q6H PRN PRN Reason: PAIN LEVEL 7 - 10 Last Admin: 05/28/18 09:16 Dose: 5 mg Propranolol HCl (Inderal La -) 160 mg PO BID [facility] Last Admin: 05/28/18 09:41 Dose: 160 mg Ranitidine HCl (Zantac -) 150 mg PO BID [facility] Last Admin: 05/28/18 09:21 Dose: 150 mg Ranolazine (Ranexa -) 1,000 mg PO BID [facility] Last Admin: 05/28/18 09:21 Dose: 1,000 mg Rosuvastatin Calcium (Crestor -) 10 mg PO HS [facility] Last Admin: 05/27/18 21:49 Dose: 10 mg - Objective Vital Signs: Vital Signs Temperature 98.1 F 05/28/18 01:12 Pulse Rate 76 05/28/18 01:12 Respiratory Rate 18 05/28/18 01:12 Blood Pressure 172/103 H 05/28/18 01:12 O2 Sat by Pulse Oximetry (%) 97 05/27/18 21:00 Constitutional: Yes: No Distress, Calm Neck: Yes: Supple Cardiovascular: Yes: Regular Rate and Rhythm Respiratory: Yes: Regular, Diminished Gastrointestinal: Yes: Normal Bowel Sounds, Soft Edema: Yes Labs: CBC, BMP 05/25/18 07:18 05/28/18 05:30 INR, PTT INR 0.97 (0.83-1.09) 05/25/18 07:18 - ....Imaging EKG: Report Reviewed (Tele: NSR) Problem List - Problems (1) Mitral valve prolapse syndrome Code(s): I34.1 - NONRHEUMATIC MITRAL (VALVE) PROLAPSE (2) Endothelial dysfunction of coronary artery Code(s): I99.8 - OTHER DISORDER OF CIRCULATORY SYSTEM (3) Chest pain Code(s): R07.9 - CHEST PAIN, UNSPECIFIED Qualifiers: Chest pain type: precordial pain Qualified Code(s): R07.2 - Precordial pain (4) Hyperlipemia Code(s): E78.5 - HYPERLIPIDEMIA, UNSPECIFIED Qualifiers: Hyperlipidemia type: pure hypercholesterolemia Qualified Code(s): E78.00 - Pure hypercholesterolemia, unspecified; E78.0 - Pure hypercholesterolemia (5) Hypertension Code(s): I10 - ESSENTIAL (PRIMARY) HYPERTENSION Qualifiers: Hypertension type: essential hypertension Qualified Code(s): I10 - Essential (primary) hypertension (6) Hyponatremia Code(s): E87.1 - HYPO-OSMOLALITY AND HYPONATREMIA Assessment/Plan 05/25/2018 Echo: Normal LVEF 55-60%, normal RV size and fxn, mild MR, TR A: 1. Recurrent chest pain syndrome in a patient with known history of coronary artery disease related to endothelial dysfunction 2. Mitral valve prolapse syndrome. 3. Hypertensive cardiovascular disease. 4. Hypercholesterolemia. 5. Hyponatremia and hypokalemia resolving 6. Carotid stenosis mild in severity. 7. History of migraine headaches. 8. History of hemochromatosis. 9. Degenerative lumbosacral disc disease with chronic low back pain syndrome. 10. History of traumatic ankle fracture post-ORIF PLAN: 1. Follow electrolytes 2. Continue Inderal LA 160 mg BID, Ranexa 1000 mg BID, Imdur 60 mg QD, Crestor 10 mg QD and Ecotrin 81 mg QD 3. Losartan 50 mg QD and uptitrate. Benicar is not on formulary. As outpatient. Benicar can be resumed and uptitrated 4. Nuclear Stress testing may be performed as outpatient, f/u with Dr. Holder in office 5. D/c telemetry, PT->SNF
--- NOTE | 2018-05-28 12:51 | PN ---
Progress Note, Physician Chief Complaint: patient vomitted today needs 2 person asisst - Current Medication List Current Medications: Active Medications Acetaminophen (Tylenol -) 650 mg PO Q6H PRN PRN Reason: PAIN LEVEL 1-5 Last Admin: 05/28/18 06:35 Dose: 650 mg Aspirin (Asa -) 81 mg PO DAILY [facility] Last Admin: 05/28/18 09:21 Dose: 81 mg Heparin Sodium (Porcine) (Heparin -) 5,000 unit SQ BID [facility] Last Admin: 05/28/18 09:40 Dose: 5,000 unit Potassium Chloride/Sodium Chloride (Ns+20 Meq Kcl -) 20 meq in 1,000 mls @ 50 mls/hr IV ASDIR [facility] Last Admin: 05/28/18 08:58 Dose: Not Given Isosorbide Mononitrate (Imdur -) 60 mg PO DAILY [facility] Last Admin: 05/28/18 09:21 Dose: 60 mg Losartan Potassium (Cozaar -) 50 mg PO DAILY [facility] Last Admin: 05/28/18 09:21 Dose: 50 mg Nystatin/Triamcinolone Acetonide (Mycolog Ii Ointment -) 1 applic TP BID [facility] Last Admin: 05/28/18 09:22 Dose: 1 applic Ondansetron HCl (Zofran Injection) 4 mg IVPUSH Q6H PRN PRN Reason: NAUSEA Last Admin: 05/27/18 18:30 Dose: 4 mg Oxycodone HCl (Roxicodone -) 5 mg PO Q6H PRN PRN Reason: PAIN LEVEL 7 - 10 Last Admin: 05/28/18 09:16 Dose: 5 mg Propranolol HCl (Inderal La -) 160 mg PO BID [facility] Last Admin: 05/28/18 09:41 Dose: 160 mg Ranitidine HCl (Zantac -) 150 mg PO BID [facility] Last Admin: 05/28/18 09:21 Dose: 150 mg Ranolazine (Ranexa -) 1,000 mg PO BID [facility] Last Admin: 05/28/18 09:21 Dose: 1,000 mg Rosuvastatin Calcium (Crestor -) 10 mg PO HS [facility] Last Admin: 05/27/18 21:49 Dose: 10 mg - Objective Vital Signs: Vital Signs Temperature 98.1 F 05/28/18 01:12 Pulse Rate 76 05/28/18 01:12 Respiratory Rate 18 05/28/18 01:12 Blood Pressure 172/103 H 05/28/18 01:12 O2 Sat by Pulse Oximetry (%) 97 05/27/18 21:00 Constitutional: Yes: Calm Cardiovascular: Yes: Regular Rate and Rhythm, S1, S2 Respiratory: Yes: CTA Bilaterally Gastrointestinal: Yes: Normal Bowel Sounds, Soft Labs: CBC, BMP 05/25/18 07:18 05/28/18 05:30 INR, PTT INR 0.97 (0.83-1.09) 05/25/18 07:18 Problem List - Problems (1) Hyponatremia Assessment/Plan: ivf to conitnue recheck lytes in AM renal eval noted recheck sodium now 129- 132 urine lytes Code(s): E87.1 - HYPO-OSMOLALITY AND HYPONATREMIA (2) Chest pain Assessment/Plan: telemtry nsr- dc telemetry echo left ventricle systolic function normal and ejection fraction normal outpatient stress test lipid profile statin aspirin inderal Code(s): R07.9 - CHEST PAIN, UNSPECIFIED Qualifiers: Chest pain type: precordial pain Qualified Code(s): R07.2 - Precordial pain Assessment/Plan will most likely needs snf
--- NOTE | 2018-05-28 15:22 | CON.PSY ---
Psychiatry Consult Chief Complaint: 67 year old female with a history of Major Depressive Disorder , ap[tient seen for psych eval. Symptoms: reports: Depressed Mood, Anxiety - Previous Psychiatric Treatment Outpatient: Less than 6 mos ago Inpatient: Within the last 12 months - Previous Substance Abuse Treatment Outpatient: None Inpatient: None - Reason for Previous Treatment Reason for Previous Treatment: Major Depression - Current Medications Current Medications: Active Medications Acetaminophen (Tylenol -) 650 mg PO Q6H PRN PRN Reason: PAIN LEVEL 1-5 Last Admin: 05/28/18 06:35 Dose: 650 mg Aspirin (Asa -) 81 mg PO DAILY [facility] Last Admin: 05/28/18 09:21 Dose: 81 mg Escitalopram Oxalate (Lexapro -) 10 mg PO DAILY [facility] Heparin Sodium (Porcine) (Heparin -) 5,000 unit SQ BID [facility] Last Admin: 05/28/18 09:40 Dose: 5,000 unit Potassium Chloride/Sodium Chloride (Ns+20 Meq Kcl -) 20 meq in 1,000 mls @ 50 mls/hr IV ASDIR [facility] Last Admin: 05/28/18 08:58 Dose: Not Given Isosorbide Mononitrate (Imdur -) 60 mg PO DAILY [facility] Last Admin: 05/28/18 09:21 Dose: 60 mg Losartan Potassium (Cozaar -) 50 mg PO DAILY [facility] Last Admin: 05/28/18 09:21 Dose: 50 mg Nystatin/Triamcinolone Acetonide (Mycolog Ii Ointment -) 1 applic TP BID [facility] Last Admin: 05/28/18 09:22 Dose: 1 applic Ondansetron HCl (Zofran Injection) 4 mg IVPUSH Q6H PRN PRN Reason: NAUSEA Last Admin: 05/27/18 18:30 Dose: 4 mg Oxycodone HCl (Roxicodone -) 5 mg PO Q6H PRN PRN Reason: PAIN LEVEL 7 - 10 Last Admin: 05/28/18 09:16 Dose: 5 mg Propranolol HCl (Inderal La -) 160 mg PO BID [facility] Last Admin: 05/28/18 09:41 Dose: 160 mg Ranitidine HCl (Zantac -) 150 mg PO BID [facility] Last Admin: 05/28/18 09:21 Dose: 150 mg Ranolazine (Ranexa -) 1,000 mg PO BID [facility] Last Admin: 05/28/18 09:21 Dose: 1,000 mg Rosuvastatin Calcium (Crestor -) 10 mg PO HS [facility] Last Admin: 05/27/18 21:49 Dose: 10 mg Trazodone HCl (Desyrel -) 50 mg PO HS [facility] - Allergies Allergies: Allergies Allergy/AdvReac Type Severity Reaction Status Date / Time celecoxib [From Celebrex] Allergy Mild Verified 05/24/18 11:32 Shellfish Allergy Mild Swelling Verified 05/24/18 11:32 - Current Living Status Usual Living Arrangement: Alone - Current Mental Status Evaluation Appearance: Well Groomed Attitude: Cooperative - Affect Affect: Full Range Appropriateness: Appropriate to Content - Mood Mood: Anxious - Speech/Language Expressive: Coherent - Psychomotor Activity Psychomotor Activity: Hyperactive - Thought Process Thought Process: Intact - Thought Content Hallucinations: Absent Delusions: Absent - Self Perception Self Perception: No Impairment - Cognition Attention: Alert Orientation: Time Memory, Immediate Recall: Intact Memory, Short Term: 3/3 Memory, Remote with Promptin/3 - Concentration Serial Sevens Intact: No Simple Calculations Intact: Yes - Abstraction Proverb Interpretation: Intact Judgement: Intact - Insight Insight: Intact - Impulse Control Impulse Control: Good Control - Suicidal Ideation Suicidal Ideation: No - Homicidal Ideation Homicidal Ideation: No Assessment/Plan 1) Restart Lexapro 10mg po od and TRazadone 50mg po hs for Depression.
--- NOTE | 2018-05-28 16:15 | PN ---
Progress Note, Physician History of Present Illness: Pt seen and examined at bedside. She is awake and alert. She denies shortness of breath. - Current Medication List Current Medications: Active Medications Acetaminophen (Tylenol -) 650 mg PO Q6H PRN PRN Reason: PAIN LEVEL 1-5 Last Admin: 05/28/18 06:35 Dose: 650 mg Aspirin (Asa -) 81 mg PO DAILY [facility] Last Admin: 05/28/18 09:21 Dose: 81 mg Escitalopram Oxalate (Lexapro -) 10 mg PO DAILY [facility] Heparin Sodium (Porcine) (Heparin -) 5,000 unit SQ BID [facility] Last Admin: 05/28/18 09:40 Dose: 5,000 unit Isosorbide Mononitrate (Imdur -) 60 mg PO DAILY [facility] Last Admin: 05/28/18 09:21 Dose: 60 mg Losartan Potassium (Cozaar -) 50 mg PO DAILY [facility] Last Admin: 05/28/18 09:21 Dose: 50 mg Nystatin/Triamcinolone Acetonide (Mycolog Ii Ointment -) 1 applic TP BID [facility] Last Admin: 05/28/18 09:22 Dose: 1 applic Ondansetron HCl (Zofran Injection) 4 mg IVPUSH Q6H PRN PRN Reason: NAUSEA Last Admin: 05/27/18 18:30 Dose: 4 mg Oxycodone HCl (Roxicodone -) 5 mg PO Q6H PRN PRN Reason: PAIN LEVEL 7 - 10 Last Admin: 05/28/18 09:16 Dose: 5 mg Propranolol HCl (Inderal La -) 160 mg PO BID [facility] Last Admin: 05/28/18 09:41 Dose: 160 mg Ranitidine HCl (Zantac -) 150 mg PO BID [facility] Last Admin: 05/28/18 09:21 Dose: 150 mg Ranolazine (Ranexa -) 1,000 mg PO BID [facility] Last Admin: 05/28/18 09:21 Dose: 1,000 mg Rosuvastatin Calcium (Crestor -) 10 mg PO HS [facility] Last Admin: 05/27/18 21:49 Dose: 10 mg Trazodone HCl (Desyrel -) 50 mg PO HS [facility] - Objective Vital Signs: Vital Signs Temperature 97.9 F 05/28/18 14:00 Pulse Rate 74 05/28/18 14:00 Respiratory Rate 18 05/28/18 09:00 Blood Pressure 151/93 05/28/18 14:00 O2 Sat by Pulse Oximetry (%) 97 05/28/18 09:00 Constitutional: Yes: Calm Eyes: Yes: Conjunctiva Clear HENT: Yes: Atraumatic Neck: Yes: Supple Cardiovascular: Yes: S1, S2 Respiratory: Yes: CTA Bilaterally Gastrointestinal: Yes: Soft Genitourinary: Yes: WNL Musculoskeletal: Yes: WNL Edema: No Neurological: Yes: Oriented Psychiatric: Yes: Oriented Labs: CBC, BMP 05/25/18 07:18 05/28/18 05:30 INR, PTT INR 0.97 (0.83-1.09) 05/25/18 07:18 Problem List - Problems (1) Hyponatremia Code(s): E87.1 - HYPO-OSMOLALITY AND HYPONATREMIA (2) Chest pain Code(s): R07.9 - CHEST PAIN, UNSPECIFIED Qualifiers: Chest pain type: precordial pain Qualified Code(s): R07.2 - Precordial pain (3) Hypertension Code(s): I10 - ESSENTIAL (PRIMARY) HYPERTENSION Qualifiers: Hypertension type: essential hypertension Qualified Code(s): I10 - Essential (primary) hypertension Assessment/Plan Current Medications Generic Name Dose Route Start Last Admin Trade Name Freq PRN Reason Stop Dose Admin Acetaminophen 650 mg 05/24/18 14:58 05/28/18 06:35 Tylenol - PO 650 mg Q6H PRN Administration PAIN LEVEL 1-5 Aspirin 81 mg 05/25/18 10:00 05/28/18 09:21 Asa - PO 81 mg DAILY [facility] Administration Escitalopram Oxalate 10 mg 05/29/18 10:00 Lexapro - PO DAILY [facility] Heparin Sodium (Porcine) 5,000 unit 05/26/18 10:00 05/28/18 09:40 Heparin - SQ 5,000 unit BID [facility] Administration Isosorbide Mononitrate 60 mg 05/25/18 10:00 05/28/18 09:21 Imdur - PO 60 mg DAILY [facility] Administration Losartan Potassium 50 mg 05/26/18 10:15 05/28/18 09:21 Cozaar - PO 50 mg DAILY [facility] Administration Nystatin/Triamcinolone Acetonide 1 applic 05/26/18 11:45 05/28/18 09:22 Mycolog Ii Ointment - TP 1 applic BID [facility] Administration Ondansetron HCl 4 mg 05/24/18 14:48 05/27/18 18:30 Zofran Injection IVPUSH 4 mg Q6H PRN Administration NAUSEA Oxycodone HCl 5 mg 05/24/18 15:01 05/28/18 09:16 Roxicodone - PO 5 mg Q6H PRN Administration PAIN LEVEL 7 - 10 Propranolol HCl 160 mg 05/24/18 22:00 05/28/18 09:41 Inderal La - PO 160 mg BID [facility] Administration Ranitidine HCl 150 mg 05/24/18 22:00 05/28/18 09:21 Zantac - PO 150 mg BID [facility] Administration Ranolazine 1,000 mg 05/24/18 22:00 05/28/18 09:21 Ranexa - PO 1,000 mg BID [facility] Administration Rosuvastatin Calcium 10 mg 05/24/18 22:00 05/27/18 21:49 Crestor - PO 10 mg HS [facility] Administration Trazodone HCl 50 mg 05/28/18 22:00 Desyrel - PO HS [facility] Impression 1. hyponatremia 2. chest pain 3. gerd 4. hld 5. depression 6. anxiety 7. htn 8. arthritis Plan - restrict free water - encourage PO intake - will give salt tabs - repeat labs in am
[2018-05-28] MEDS ORDERED: ONDANSETRON 4 MG TABLET PO PRN (17:44)
[2018-05-28 18:08] LABS: POTASSIUM 4.3 mmol/L (3.5-5.1)
[2018-05-28] MEDS ORDERED: PT OWN MED DRAWER 7, Y5N ONE (21:20)
[2018-05-28] MEDS: ROSUVASTATIN CA 10 MG TABLET (FP) PO SCH (21:43)
[2018-05-28] MEDS: traZODone HCL 50 MG TABLET (FP) PO SCH (21:43)
[2018-05-28] MEDS: SODIUM CHLORIDE 1 GM TABLET PO SCH (21:46)
[2018-05-29 08:27] LABS: ALBUMIN 3.6 g/dl (3.4-5.0); ALK PHOS 78 U/L (45-117); ANION GAP 10 MMOL/L (8-16); BILIRUBIN,TOTAL 0.4 mg/dL (0.2-1); BLOOD UREA NITROGEN 6 mg/dL (7-18); CALCIUM 8.5 mg/dL (8.5-10.1); CHLORIDE 96 mmol/L (98-107); CO2 30 mmol/L (21-32); CREATININE 0.6 mg/dL (0.55-1.3); GLUCOSE,RANDOM 107 mg/dL (74-106); MAGNESIUM 2.1 mg/dL (1.8-2.4); POTASSIUM 3.5 mmol/L (3.5-5.1); SGOT/AST 25 U/L (15-37); SGPT/ALT 35 U/L (13-61); SODIUM 136 mmol/L (136-145); TOT PROT 6.8 g/dl (6.4-8.2)
--- NOTE | 2018-05-29 10:11 | PN ---
Progress Note (short form) - Note Progress Note: Chief Complaint: Events noted, notes reviewed, denies any recurrent chest pain, denies any dyspnea, reports nausea, reports restless legs History of Present Illness: Seen and examined on telemetry. Events noted, notes reviewed, denies any recurrent chest pain, denies any dyspnea, reports nausea, reports restless legs Echocardiography 05/25/2018 revealed normal LV systolic function, LVEF 55-60%, normal RV size and function, mild MR and TR - Current Medication List Current Medications: Current Medications Acetaminophen (Tylenol -) 650 mg PO Q6H PRN PRN Reason: PAIN LEVEL 1-5 Last Admin: 05/28/18 17:22 Dose: 650 mg Aspirin (Asa -) 81 mg PO DAILY [facility] Last Admin: 05/28/18 09:21 Dose: 81 mg Escitalopram Oxalate (Lexapro -) 10 mg PO DAILY [facility] Heparin Sodium (Porcine) (Heparin -) 5,000 unit SQ BID [facility] Last Admin: 05/28/18 21:44 Dose: 5,000 unit Isosorbide Mononitrate (Imdur -) 60 mg PO DAILY [facility] Last Admin: 05/28/18 09:21 Dose: 60 mg Losartan Potassium (Cozaar -) 50 mg PO DAILY [facility] Last Admin: 05/28/18 09:21 Dose: 50 mg Nystatin/Triamcinolone Acetonide (Mycolog Ii Ointment -) 1 applic TP BID [facility] Last Admin: 05/28/18 23:50 Dose: 1 applic Ondansetron HCl (Zofran Injection) 4 mg IVPUSH Q6H PRN PRN Reason: NAUSEA Last Admin: 05/27/18 18:30 Dose: 4 mg Ondansetron HCl (Zofran -) 4 mg PO Q8H PRN PRN Reason: NAUSEA Oxycodone HCl (Roxicodone -) 5 mg PO Q6H PRN PRN Reason: PAIN LEVEL 7 - 10 Last Admin: 05/28/18 17:24 Dose: 5 mg Propranolol HCl (Inderal La -) 160 mg PO BID [facility] Last Admin: 05/28/18 21:44 Dose: 160 mg Ranitidine HCl (Zantac -) 150 mg PO BID [facility] Last Admin: 05/28/18 21:46 Dose: 150 mg Ranolazine (Ranexa -) 1,000 mg PO BID [facility] Last Admin: 05/28/18 21:46 Dose: 1,000 mg Rosuvastatin Calcium (Crestor -) 10 mg PO [facility] Last Admin: 05/28/18 21:43 Dose: 10 mg Sodium Chloride (Sodium Chloride Tablet -) 1 gm PO BID [facility] Last Admin: 05/28/18 21:46 Dose: 1 gm Trazodone HCl (Desyrel -) 50 mg PO [facility] Last Admin: 05/28/18 21:43 Dose: 50 mg Review of Systems Cardiovascular: As noted above Respiratory: denies: As noted above Gastrointestinal: denies: Nausea, Vomiting, Diarrhea, Constipation or Abdominal Discomfort Musculoskeletal: No Symptoms Reported Endocrine: No Symptoms Reported - Objective Vital Signs: Last Vital Signs Temp Pulse Resp BP Pulse Ox 98 F 69 20 132/63 97 05/29/18 09:00 05/29/18 09:00 05/29/18 09:00 05/29/18 09:00 05/28/18 21:00 Intake & Output 05/26/18 05/27/18 05/28/18 05/29/18 23:59 23:59 23:59 23:59 Intake Total 770 600 540 Output Total 400 250 Balance 770 600 140 -250 Constitutional: No Distress, Calm, Thin Neck: Supple Negative JVD Cardiovascular: S1 S2 Regular Rate and Rhythm Respiratory: Clear to A&P Bilaterally Gastrointestinal: Soft Benign Normal Bowel Sounds Ext: No Edema Labs: CBC, BMP 05/25/18 07:18 05/29/18 06:40 Hepatic Panel Total Bilirubin 0.4 mg/dL (0.2-1) 05/29/18 06:40 AST 25 U/L (15-37) 05/29/18 06:40 ALT 35 U/L (13-61) 05/29/18 06:40 Alkaline Phosphatase 78 U/L (45-117) 05/29/18 06:40 Albumin 3.6 g/dl (3.4-5.0) 05/29/18 06:40 INR, PTT INR 0.97 (0.83-1.09) 05/25/18 07:18 Assessment/Plan ASSESSMENT: 1. Chest pain syndrome in a patient with known history of coronary artery disease related to endothelial dysfunction 2. Mitral valve prolapse syndrome 3. Hypertensive cardiovascular disease 4. Hypercholesterolemia 5. Hyponatremia and hypokalemia resolved 6. Carotid stenosis mild in severity 7. History of migraine headaches 8. History of hemochromatosis 9. Degenerative lumbosacral disc disease with chronic low back pain syndrome 10. History of traumatic ankle fracture post-ORIF PLAN: 1. Continue Inderal LA 2. Continue Ranexa 3. Continue Imdur 4. Continue Cozaar and titrate as needed and tolerated 5. Continue Crestor 6. Continue Ecotrin 7. Nuclear Stress testing may be performed as outpatient Moses Holder MD
[2018-05-29] MEDS ORDERED: PT OWN MED DRAWER 7, Y5N ONE (10:27)
[2018-05-29] MEDS: SODIUM CHLORIDE 1 GM TABLET PO SCH ×2 (11:15→21:34)
[2018-05-29] MEDS: RANOLAZINE E.R. 1,000 MG TABLET (FP) PO SCH ×2 (11:16→21:34)
[2018-05-29] MEDS: HEPARIN NA (PORCINE) 5,000 UNITS/ML 1ML VIAL SQ SCH ×2 (11:16→21:32)
[2018-05-29] MEDS: ESCITALOPRAM OXALATE 10 MG TABLET (FP) PO SCH (11:16)
[2018-05-29] MEDS: ISOSORBIDE MONONITRATE 60 MG TAB.SR.24H (FP) PO SCH (11:16)
[2018-05-29] MEDS: RANITIDINE HCL 150 MG TABLET (FP) PO SCH ×2 (11:16→21:34)
[2018-05-29] MEDS: ASPIRIN 81 MG CHEWABLE TABLETS PO SCH (11:16)
[2018-05-29] MEDS: NYSTATIN/TRIAMCINOLONE TOPICAL OINTMENT 15 GM TUBE TP SCH ×2 (11:17→21:33)
[2018-05-29] MEDS: LOSARTAN POTASSIUM 50 MG TABLET (FP) PO SCH (12:00)
--- NOTE | 2018-05-29 12:34 | PN ---
Progress Note, Physician History of Present Illness: Pt seen and examined at bedside. She is awake and alert. She denies shortness of breath. - Current Medication List Current Medications: Active Medications Acetaminophen (Tylenol -) 650 mg PO Q6H PRN PRN Reason: PAIN LEVEL 1-5 Last Admin: 05/28/18 17:22 Dose: 650 mg Aspirin (Asa -) 81 mg PO DAILY [facility] Last Admin: 05/29/18 11:16 Dose: 81 mg Escitalopram Oxalate (Lexapro -) 10 mg PO DAILY [facility] Last Admin: 05/29/18 11:16 Dose: 10 mg Heparin Sodium (Porcine) (Heparin -) 5,000 unit SQ BID [facility] Last Admin: 05/29/18 11:16 Dose: 5,000 unit Isosorbide Mononitrate (Imdur -) 60 mg PO DAILY [facility] Last Admin: 05/29/18 11:16 Dose: 60 mg Losartan Potassium (Cozaar -) 50 mg PO DAILY [facility] Last Admin: 05/28/18 09:21 Dose: 50 mg Nystatin/Triamcinolone Acetonide (Mycolog Ii Ointment -) 1 applic TP BID [facility] Last Admin: 05/29/18 11:17 Dose: 1 applic Ondansetron HCl (Zofran Injection) 4 mg IVPUSH Q6H PRN PRN Reason: NAUSEA Last Admin: 05/27/18 18:30 Dose: 4 mg Ondansetron HCl (Zofran -) 4 mg PO Q8H PRN PRN Reason: NAUSEA Oxycodone HCl (Roxicodone -) 5 mg PO Q6H PRN PRN Reason: PAIN LEVEL 7 - 10 Last Admin: 05/28/18 17:24 Dose: 5 mg Propranolol HCl (Inderal La -) 160 mg PO BID [facility] Last Admin: 05/29/18 11:17 Dose: 160 mg Ranitidine HCl (Zantac -) 150 mg PO BID [facility] Last Admin: 05/29/18 11:16 Dose: 150 mg Ranolazine (Ranexa -) 1,000 mg PO BID [facility] Last Admin: 05/29/18 11:16 Dose: 1,000 mg Rosuvastatin Calcium (Crestor -) 10 mg PO HS [facility] Last Admin: 05/28/18 21:43 Dose: 10 mg Sodium Chloride (Sodium Chloride Tablet -) 1 gm PO BID [facility] Last Admin: 02/26/19 11:15 Dose: 1 gm Trazodone HCl (Desyrel -) 50 mg PO HS [facility] Last Admin: 05/28/18 21:43 Dose: 50 mg - Objective Vital Signs: Vital Signs Temperature 98 F 05/29/18 09:00 Pulse Rate 69 05/29/18 09:00 Respiratory Rate 20 05/29/18 09:00 Blood Pressure 132/63 05/29/18 09:00 O2 Sat by Pulse Oximetry (%) 97 05/28/18 21:00 Constitutional: Yes: Calm Eyes: Yes: Conjunctiva Clear HENT: Yes: Atraumatic Neck: Yes: Supple Cardiovascular: Yes: S1, S2 Respiratory: Yes: CTA Bilaterally Gastrointestinal: Yes: Soft Genitourinary: Yes: WNL Musculoskeletal: Yes: WNL Edema: No Neurological: Yes: Oriented Psychiatric: Yes: Oriented Labs: CBC, BMP 05/25/18 07:18 05/29/18 06:40 INR, PTT INR 0.97 (0.83-1.09) 05/25/18 07:18 Problem List - Problems (1) Hyponatremia Code(s): E87.1 - HYPO-OSMOLALITY AND HYPONATREMIA (2) Chest pain Code(s): R07.9 - CHEST PAIN, UNSPECIFIED Qualifiers: Chest pain type: precordial pain Qualified Code(s): R07.2 - Precordial pain (3) Hypertension Code(s): I10 - ESSENTIAL (PRIMARY) HYPERTENSION Qualifiers: Hypertension type: essential hypertension Qualified Code(s): I10 - Essential (primary) hypertension Assessment/Plan Current Medications Generic Name Dose Route Start Last Admin Trade Name Freq PRN Reason Stop Dose Admin Acetaminophen 650 mg 05/24/18 14:58 05/28/18 17:22 Tylenol - PO 650 mg Q6H PRN Administration PAIN LEVEL 1-5 Aspirin 81 mg 05/25/18 10:00 05/29/18 11:16 Asa - PO 81 mg DAILY [facility] Administration Escitalopram Oxalate 10 mg 05/29/18 10:00 05/29/18 11:16 Lexapro - PO 10 mg DAILY [facility] Administration Heparin Sodium (Porcine) 5,000 unit 05/26/18 10:00 05/29/18 11:16 Heparin - SQ 5,000 unit BID [facility] Administration Isosorbide Mononitrate 60 mg 05/25/18 10:00 05/29/18 11:16 Imdur - PO 60 mg DAILY [facility] Administration Losartan Potassium 50 mg 05/26/18 10:15 05/28/18 09:21 Cozaar - PO 50 mg DAILY [facility] Administration Nystatin/Triamcinolone Acetonide 1 applic 05/26/18 11:45 05/29/18 11:17 Mycolog Ii Ointment - TP 1 applic BID [facility] Administration Ondansetron HCl 4 mg 05/24/18 14:48 05/27/18 18:30 Zofran Injection IVPUSH 4 mg Q6H PRN Administration NAUSEA Ondansetron HCl 4 mg 05/28/18 17:44 Zofran - PO Q8H PRN NAUSEA Oxycodone HCl 5 mg 05/24/18 15:01 05/28/18 17:24 Roxicodone - PO 5 mg Q6H PRN Administration PAIN LEVEL 7 - 10 Propranolol HCl 160 mg 05/24/18 22:00 05/29/18 11:17 Inderal La - PO 160 mg BID [facility] Administration Ranitidine HCl 150 mg 05/24/18 22:00 05/29/18 11:16 Zantac - PO 150 mg BID [facility] Administration Ranolazine 1,000 mg 05/24/18 22:00 05/29/18 11:16 Ranexa - PO 1,000 mg BID [facility] Administration Rosuvastatin Calcium 10 mg 05/24/18 22:00 05/28/18 21:43 Crestor - PO 10 mg HS [facility] Administration Sodium Chloride 1 gm 05/28/18 22:00 05/29/18 11:15 Sodium Chloride Tablet - PO 1 gm BID [facility] Administration Trazodone HCl 50 mg 05/28/18 22:00 05/28/18 21:43 Desyrel - PO 50 mg HS [facility] Administration Impression 1. hyponatremia 2. chest pain 3. gerd 4. hld 5. depression 6. anxiety 7. htn 8. arthritis Plan - sodium is improved - cont with salt tabs for now - pt has poor po intake - restrict free water - will need outpt follow up
--- NOTE | 2018-05-29 12:59 | PN ---
Progress Note, Physician Chief Complaint: seen by psych complaining that constantly needs to move and shake her legs even at night - Current Medication List Current Medications: Active Medications Acetaminophen (Tylenol -) 650 mg PO Q6H PRN PRN Reason: PAIN LEVEL 1-5 Last Admin: 05/28/18 17:22 Dose: 650 mg Aspirin (Asa -) 81 mg PO DAILY [facility] Last Admin: 05/29/18 11:16 Dose: 81 mg Escitalopram Oxalate (Lexapro -) 10 mg PO DAILY [facility] Last Admin: 05/29/18 11:16 Dose: 10 mg Heparin Sodium (Porcine) (Heparin -) 5,000 unit SQ BID [facility] Last Admin: 05/29/18 11:16 Dose: 5,000 unit Isosorbide Mononitrate (Imdur -) 60 mg PO DAILY [facility] Last Admin: 05/29/18 11:16 Dose: 60 mg Losartan Potassium (Cozaar -) 50 mg PO DAILY [facility] Last Admin: 05/28/18 09:21 Dose: 50 mg Nystatin/Triamcinolone Acetonide (Mycolog Ii Ointment -) 1 applic TP BID [facility] Last Admin: 05/29/18 11:17 Dose: 1 applic Ondansetron HCl (Zofran Injection) 4 mg IVPUSH Q6H PRN PRN Reason: NAUSEA Last Admin: 05/27/18 18:30 Dose: 4 mg Ondansetron HCl (Zofran -) 4 mg PO Q8H PRN PRN Reason: NAUSEA Oxycodone HCl (Roxicodone -) 5 mg PO Q6H PRN PRN Reason: PAIN LEVEL 7 - 10 Last Admin: 05/28/18 17:24 Dose: 5 mg Propranolol HCl (Inderal La -) 160 mg PO BID [facility] Last Admin: 05/29/18 11:17 Dose: 160 mg Ranitidine HCl (Zantac -) 150 mg PO BID [facility] Last Admin: 05/29/18 11:16 Dose: 150 mg Ranolazine (Ranexa -) 1,000 mg PO BID [facility] Last Admin: 05/29/18 11:16 Dose: 1,000 mg Rosuvastatin Calcium (Crestor -) 10 mg PO HS [facility] Last Admin: 05/28/18 21:43 Dose: 10 mg Sodium Chloride (Sodium Chloride Tablet -) 1 gm PO BID [facility] Last Admin: 05/29/18 11:15 Dose: 1 gm Trazodone HCl (Desyrel -) 50 mg PO HS [facility] Last Admin: 05/28/18 21:43 Dose: 50 mg - Objective Vital Signs: Vital Signs Temperature 98 F 05/29/18 09:00 Pulse Rate 69 05/29/18 09:00 Respiratory Rate 20 05/29/18 09:00 Blood Pressure 132/63 05/29/18 09:00 O2 Sat by Pulse Oximetry (%) 97 05/28/18 21:00 Constitutional: Yes: Calm Cardiovascular: Yes: Regular Rate and Rhythm, S1, S2 Respiratory: Yes: CTA Bilaterally Gastrointestinal: Yes: Normal Bowel Sounds, Soft Neurological: Yes: Alert Labs: CBC, BMP 05/25/18 07:18 05/29/18 06:40 INR, PTT INR 0.97 (0.83-1.09) 05/25/18 07:18 Problem List - Problems (1) Hyponatremia Assessment/Plan: resolved Code(s): E87.1 - HYPO-OSMOLALITY AND HYPONATREMIA (2) Chest pain Assessment/Plan: telemtry nsr- dc telemetry echo left ventricle systolic function normal and ejection fraction normal outpatient stress test lipid profile statin aspirin inderal Code(s): R07.9 - CHEST PAIN, UNSPECIFIED Qualifiers: Chest pain type: precordial pain Qualified Code(s): R07.2 - Precordial pain (3) Depression Assessment/Plan: trazadone and elxapro Code(s): F32.9 - MAJOR DEPRESSIVE DISORDER, SINGLE EPISODE, UNSPECIFIED Assessment/Plan branden neuroloy see her for possible RLS then dc to [facility]
--- NOTE | 2018-05-29 13:03 | DS ---
Physical Examination Vital Signs: Vital Signs Temperature 98 F 05/29/18 09:00 Pulse Rate 69 05/29/18 09:00 Respiratory Rate 20 05/29/18 09:00 Blood Pressure 132/63 05/29/18 09:00 O2 Sat by Pulse Oximetry (%) 97 05/28/18 21:00 Constitutional: Yes: Calm Cardiovascular: Yes: Regular Rate and Rhythm, S1, S2 Respiratory: Yes: CTA Bilaterally Gastrointestinal: Yes: Normal Bowel Sounds, Soft Neurological: Yes: Alert Labs: CBC, BMP 05/25/18 07:18 05/29/18 06:40 Discharge Summary Reason For Visit: CHEST PAIN Current Active Problems Depression (Acute) Endothelial dysfunction of coronary artery (Acute) Hypokalemia (Acute) Hyponatremia (Acute) Mitral valve prolapse syndrome (Acute) Other Procedures: echo. ekg Hospital Course: - Primary Care Physician PCP: Ethan López - Admission Chief Complaint: came in with chest pressure History of Present Illness: The patient is a 67F with a PMH of HTN, HLD, CAD, arthritis, vertigo, who presents with CP. The patient states that she woke up in the middle of the night and felt squeezing under her R breast. The squeezing woke her up out of sleep, is intermittent, radiates to her L side, and does not have exacerbating or alleviating factors. She states it feels like a 3/10.patient says she feels nauseous admitted to tele work up negative outpatient stress seen by renal as well neuroogy to see for possible RLS psych saw her for depression lexapro and trazadone Condition: Improved - Instructions Diet, Activity, Other Instructions: check iron studies at [place] Referrals: Ethan López MD [Primary Care Provider] - Disposition: LONG-TERM FACILITY - Home Medications Comprehensive Discharge Medication List: Ambulatory Orders Ranolazine [Ranexa -] 1,000 mg PO BID #0 tab 06/04/12 Ranitidine HCl [Zantac] 150 mg PO BID 04/10/13 Alendronate Na [Fosamax (Weekly)] 1 tab PO WEEKLY 01/31/14 Rosuvastatin Calcium [Crestor] 20 mg PO HS 01/31/14 Benztropine Mesylate 0.5 mg PO DAILY 06/10/15 Escitalopram Oxalate [Lexapro -] 20 mg PO DAILY 06/10/15 Propranolol HCl [Propranolol HCl ER] 160 mg PO BID 06/10/15 Sumatriptan Succinate [Imitrex] 100 mg PO PRN PRN 06/10/15 traZODone HCL [Desyrel -] 50 mg PO HS 06/10/15 Aripiprazole 2 mg PO HS 12/22/15 Isosorbide Mononitrate [Imdur -] 60 mg PO PRN 12/22/15 Levomefolate/Algal Oil [Deplin-Algal Oil 15 mg Capsule] 1 each PO HS 12/22/15 Oxycodone HCl 10 mg PO PRN PRN 12/22/15 Hydrocodone/Acetaminophen [Vicodin 5-300 mg Tablet] 1 - 2 tab PO TID PRN #60 tablet MDD 6 12/23/15
[2018-05-29] MEDS: oxyCODONE HCL 5 MG TABLET PO PRN ×2 (13:24→21:39)
--- NOTE | 2018-05-29 15:14 | CONSULT ---
Consult - text type - Consultation Consultation Note: NEUROLOGY CONSULT APPRECIATED: Events reviewed and discussed with staff. Cardiology, Psychiatry, Nephrology consults read and appreciated. 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 Assisted by [facility] adult services (ie shopping, etc). Pt ambulates independently but does note up to 4 years of difficulty with gait and at least 4 falls with right ankle and wrist fractures requiring ORIF. PMHX: HTN, HLD, CAD, arthritis, vertigo, GERD, Migraines, Chronic LBP (s/p LS laminectomy in her 20's- Dr. You Paul) Psychiatric history sig for "depression" but patient notes Auditory hallucinations 1 year ago (followed by Dr. Sari Heath). Medications include: Ranexa, ranitidine, alendronate, rosuvastatin, benztropine 0.5 mg, escitalopram, propranolol ER 160, sumatriptan prn, trazodone, aripiprazole 2 mg qhs, Isosorbide mononitrate, oxycodone 10 mg prn, hydrocodone/ APAP 5-325 She recalls a history of migraines since age 18 with "pounding" pains over top of the head during menses with associated N/V/P/P and kinesiophobia lasting 2-3 days, requiring medical treatment that she cannot recall. She notes now a change in headaches, which are now "aching" temporal headaches, approximately 2- 3x/week "milder" in nature, usually relieved with use of Tylenol or NSAIDs. Review of systems is significant for chronic low back pain since age 18s with radiating pains down legs. She underwent back surgery and symptoms returned at age 38s. She notes it is now constant in nature, however worse in evening time and with recurrent awakenings due to pain. She also reports approximately 1 fall per year within past three years. She reports she cannot even walk a block due to back pains. She has noted within the last year a tremor in her hands, "worse when she is stressed." Family history unremarkable for migraines, tremor , falls, or seizures. ROS sig for Bruxism and vivid dreams Head CT (reviewed): moderate atrophy, chronic periventricular ischemic changes Labs: NA 125 -> 129 TSH 0.49 CK 180 -> 753 UA neg. BRITNEY: BPs 140-180/80-100, Last orthostatic BP 133/71 supine, 141/65 sitting, 105/ 58 standing, Cor reg, (-) bruit, neck supple, (-) SLR. Scattered ecchymoses. NEURO EXAM: Mentation/Speech: [facility]. May. Monday. [facility] PMURT recall 06/03 at 5. CN II-XII: Masked facies. EOMI without nystagmus. Full acevedo appreciated. Decreased rapid tongue mvmt's. Gag ok. Motor: No drift. Intermittent rhythmic head and R leg tremor. Cogwheeling present R > L. Decreased TRICAI. Toes downgoing. Absent KJ's, normal AJ 's Coordination: No FTN dystaxia Sensation: Normal to Vibration. Gait: OOBed with assist. Flexed, shuffling ait. Impression: 1. Headache, nausea today c/w Migraine Headache. R/O Cerebellar Stroke 2. Orthostatic Hypotension 3. Chronic LBP, Leg pain, parasthesia, insomnia consistent with restless limb syndrome (RLS)- associated with BOTH migraine headaches and PD. 4. Parkinsonism (possibly Parkinson's disease). Can be induced or worsened by Abilify. Suggest: MRI of brain (C-) Stat- r/o cerebellar CVA Resume Propranolol ER 120mg qd for migraine prophylaxis and BP control. Sumatriptan 100 mg PRN migraine. Order B12, RPR, ESR, CRP Follow orthostatic BPs, maintain systolic BP in 130s-140s. Observe off Abilify (as per Psyche) to see if Parkinsonism improves. Will discuss Psyche Dx and Rx with Dr. Heath. Agree with SNF level of care BUT Pt must have Out patient neuro f/ u for Rx for both PD and RLS Thank you very much, Owen Qiu MD
[2018-05-29] MEDS: traZODone HCL 50 MG TABLET (FP) PO SCH (21:32)
[2018-05-29] MEDS: ROSUVASTATIN CA 10 MG TABLET (FP) PO SCH (21:32)
[2018-05-30] MEDS ORDERED: PT OWN MED DRAWER 7, Y5N ONE (09:12)
--- NOTE | 2018-05-30 09:15 | PN ---
Progress Note, Physician History of Present Illness: Chest discomfort and dyspnea resolved. - Current Medication List Current Medications: Active Medications Acetaminophen (Tylenol -) 650 mg PO Q6H PRN PRN Reason: PAIN LEVEL 1-5 Last Admin: 05/28/18 17:22 Dose: 650 mg Aspirin (Asa -) 81 mg PO DAILY [facility] Last Admin: 05/29/18 11:16 Dose: 81 mg Escitalopram Oxalate (Lexapro -) 10 mg PO DAILY [facility] Last Admin: 05/29/18 11:16 Dose: 10 mg Heparin Sodium (Porcine) (Heparin -) 5,000 unit SQ BID [facility] Last Admin: 05/29/18 21:32 Dose: 5,000 unit Isosorbide Mononitrate (Imdur -) 60 mg PO DAILY [facility] Last Admin: 05/29/18 11:16 Dose: 60 mg Losartan Potassium (Cozaar -) 50 mg PO DAILY [facility] Last Admin: 05/29/18 12:00 Dose: 50 mg Nystatin/Triamcinolone Acetonide (Mycolog Ii Ointment -) 1 applic TP BID [facility] Last Admin: 05/29/18 21:33 Dose: 1 applic Ondansetron HCl (Zofran Injection) 4 mg IVPUSH Q6H PRN PRN Reason: NAUSEA Last Admin: 05/27/18 18:30 Dose: 4 mg Ondansetron HCl (Zofran -) 4 mg PO Q8H PRN PRN Reason: NAUSEA Oxycodone HCl (Roxicodone -) 5 mg PO Q6H PRN PRN Reason: PAIN LEVEL 7 - 10 Last Admin: 05/29/18 21:39 Dose: 5 mg Propranolol HCl (Inderal La -) 160 mg PO BID [facility] Last Admin: 05/29/18 21:33 Dose: 160 mg Ranitidine HCl (Zantac -) 150 mg PO BID [facility] Last Admin: 05/29/18 21:34 Dose: 150 mg Ranolazine (Ranexa -) 1,000 mg PO BID [facility] Last Admin: 05/29/18 21:34 Dose: 1,000 mg Rosuvastatin Calcium (Crestor -) 10 mg PO HS [facility] Last Admin: 05/29/18 21:32 Dose: 10 mg Sodium Chloride (Sodium Chloride Tablet -) 1 gm PO BID [facility] Last Admin: 05/29/18 21:34 Dose: 1 gm Trazodone HCl (Desyrel -) 50 mg PO HS [facility] Last Admin: 05/29/18 21:32 Dose: 50 mg - Objective Vital Signs: Vital Signs Temperature 98.0 F 05/30/18 06:00 Pulse Rate 71 05/30/18 06:00 Respiratory Rate 18 05/30/18 08:43 Blood Pressure 139/65 05/30/18 06:00 O2 Sat by Pulse Oximetry (%) 95 05/30/18 08:43 Constitutional: Yes: No Distress, Calm Neck: Yes: Supple Cardiovascular: Yes: Regular Rate and Rhythm Respiratory: Yes: Regular, Diminished Gastrointestinal: Yes: Normal Bowel Sounds, Soft, Abdomen, Obese Edema: Yes Edema: LLE: Trace, RLE: Trace Labs: CBC, BMP 05/25/18 07:18 05/29/18 06:40 INR, PTT INR 0.97 (0.83-1.09) 05/25/18 07:18 Problem List - Problems (1) Mitral valve prolapse syndrome Code(s): I34.1 - NONRHEUMATIC MITRAL (VALVE) PROLAPSE (2) Endothelial dysfunction of coronary artery Code(s): I99.8 - OTHER DISORDER OF CIRCULATORY SYSTEM (3) Chest pain Code(s): R07.9 - CHEST PAIN, UNSPECIFIED Qualifiers: Chest pain type: precordial pain Qualified Code(s): R07.2 - Precordial pain (4) Hyperlipemia Code(s): E78.5 - HYPERLIPIDEMIA, UNSPECIFIED Qualifiers: Hyperlipidemia type: pure hypercholesterolemia Qualified Code(s): E78.00 - Pure hypercholesterolemia, unspecified; E78.0 - Pure hypercholesterolemia (5) Hypertension Code(s): I10 - ESSENTIAL (PRIMARY) HYPERTENSION Qualifiers: Hypertension type: essential hypertension Qualified Code(s): I10 - Essential (primary) hypertension (6) Hyponatremia Code(s): E87.1 - HYPO-OSMOLALITY AND HYPONATREMIA Assessment/Plan 05/25/2018 Echo: Normal LVEF 55-60%, normal RV size and fxn, mild MR, TR A: 1. Chest pain syndrome in a patient with known history of coronary artery disease related to endothelial dysfunction 2. Mitral valve prolapse syndrome. 3. Hypertensive cardiovascular disease. 4. Hypercholesterolemia. 5. Hyponatremia and hypokalemia resolving 6. Carotid stenosis mild in severity. 7. History of migraine headaches 8. History of hemochromatosis. 9. Degenerative lumbosacral disc disease with chronic low back pain syndrome. 10. History of traumatic ankle fracture post-ORIF PLAN: 1. Follow electrolytes 2. Continue Inderal LA 160 mg BID, Ranexa 1000 mg BID, Imdur 60 mg QD, Crestor 10 mg QD and Ecotrin 81 mg QD 3. Losartan 50 mg QD and uptitrate. Benicar is not on formulary. As outpatient. Benicar can be resumed and uptitrated 4. Nuclear Stress testing may be performed as outpatient, f/u with Dr. Holder in office 5. D/c telemetry, PT->SNF, f/u brain MRI
[2018-05-30] MEDS: RANITIDINE HCL 150 MG TABLET (FP) PO SCH ×2 (09:25→21:03)
[2018-05-30] MEDS: ESCITALOPRAM OXALATE 10 MG TABLET (FP) PO SCH (09:25)
[2018-05-30] MEDS: ASPIRIN 81 MG CHEWABLE TABLETS PO SCH (09:26)
[2018-05-30] MEDS: HEPARIN NA (PORCINE) 5,000 UNITS/ML 1ML VIAL SQ SCH ×2 (09:27→21:02)
[2018-05-30] MEDS: oxyCODONE HCL 5 MG TABLET PO PRN ×3 (09:27→21:04)
[2018-05-30] MEDS: RANOLAZINE E.R. 1,000 MG TABLET (FP) PO SCH ×2 (09:27→21:03)
[2018-05-30] MEDS: ISOSORBIDE MONONITRATE 60 MG TAB.SR.24H (FP) PO SCH (09:30)
[2018-05-30] MEDS: SODIUM CHLORIDE 1 GM TABLET PO SCH ×2 (10:00→21:03)
--- NOTE | 2018-05-30 12:42 | PN ---
Progress Note, Physician History of Present Illness: Pt seen and examined at bedside. She is awake and alert. SHe denies shortness of breath. - Current Medication List Current Medications: Active Medications Acetaminophen (Tylenol -) 650 mg PO Q6H PRN PRN Reason: PAIN LEVEL 1-5 Last Admin: 05/28/18 17:22 Dose: 650 mg Aspirin (Asa -) 81 mg PO DAILY [facility] Last Admin: 05/30/18 09:26 Dose: 81 mg Escitalopram Oxalate (Lexapro -) 10 mg PO DAILY [facility] Last Admin: 05/30/18 09:25 Dose: 10 mg Heparin Sodium (Porcine) (Heparin -) 5,000 unit SQ BID [facility] Last Admin: 05/30/18 09:27 Dose: 5,000 unit Isosorbide Mononitrate (Imdur -) 60 mg PO DAILY [facility] Last Admin: 05/29/18 11:16 Dose: 60 mg Losartan Potassium (Cozaar -) 50 mg PO DAILY [facility] Last Admin: 05/29/18 12:00 Dose: 50 mg Nystatin/Triamcinolone Acetonide (Mycolog Ii Ointment -) 1 applic TP BID [facility] Last Admin: 05/29/18 21:33 Dose: 1 applic Ondansetron HCl (Zofran Injection) 4 mg IVPUSH Q6H PRN PRN Reason: NAUSEA Last Admin: 05/27/18 18:30 Dose: 4 mg Ondansetron HCl (Zofran -) 4 mg PO Q8H PRN PRN Reason: NAUSEA Oxycodone HCl (Roxicodone -) 5 mg PO Q6H PRN PRN Reason: PAIN LEVEL 7 - 10 Last Admin: 05/30/18 09:27 Dose: 5 mg Propranolol HCl (Inderal La -) 160 mg PO BID [facility] Last Admin: 05/29/18 21:33 Dose: 160 mg Ranitidine HCl (Zantac -) 150 mg PO BID [facility] Last Admin: 05/30/18 09:25 Dose: 150 mg Ranolazine (Ranexa -) 1,000 mg PO BID [facility] Last Admin: 05/30/18 09:27 Dose: 1,000 mg Rosuvastatin Calcium (Crestor -) 10 mg PO HS [facility] Last Admin: 05/29/18 21:32 Dose: 10 mg Sodium Chloride (Sodium Chloride Tablet -) 1 gm PO BID [facility] Last Admin: 02/26/19 21:34 Dose: 1 gm Trazodone HCl (Desyrel -) 50 mg PO HS [facility] Last Admin: 05/29/18 21:32 Dose: 50 mg - Objective Vital Signs: Vital Signs Temperature 98.0 F 05/30/18 06:00 Pulse Rate 76 05/30/18 09:22 Respiratory Rate 18 05/30/18 08:43 Blood Pressure 90/53 L 05/30/18 09:22 O2 Sat by Pulse Oximetry (%) 95 05/30/18 08:43 Constitutional: Yes: Calm Eyes: Yes: Conjunctiva Clear HENT: Yes: Atraumatic Cardiovascular: Yes: S1, S2 Respiratory: Yes: CTA Bilaterally Gastrointestinal: Yes: Soft Genitourinary: Yes: WNL Edema: No Neurological: Yes: Oriented Psychiatric: Yes: Oriented Labs: CBC, BMP 05/25/18 07:18 05/29/18 06:40 INR, PTT INR 0.97 (0.83-1.09) 05/25/18 07:18 Problem List - Problems (1) Hyponatremia Code(s): E87.1 - HYPO-OSMOLALITY AND HYPONATREMIA (2) Chest pain Code(s): R07.9 - CHEST PAIN, UNSPECIFIED Qualifiers: Chest pain type: precordial pain Qualified Code(s): R07.2 - Precordial pain (3) Hypertension Code(s): I10 - ESSENTIAL (PRIMARY) HYPERTENSION Qualifiers: Hypertension type: essential hypertension Qualified Code(s): I10 - Essential (primary) hypertension Assessment/Plan Current Medications Generic Name Dose Route Start Last Admin Trade Name Nallely PRN Reason Stop Dose Admin Acetaminophen 650 mg 05/24/18 14:58 05/28/18 17:22 Tylenol - PO 650 mg Q6H PRN Administration PAIN LEVEL 1-5 Aspirin 81 mg 05/25/18 10:00 05/30/18 09:26 Asa - PO 81 mg DAILY [facility] Administration Escitalopram Oxalate 10 mg 05/29/18 10:00 05/30/18 09:25 Lexapro - PO 10 mg DAILY [facility] Administration Heparin Sodium (Porcine) 5,000 unit 05/26/18 10:00 05/30/18 09:27 Heparin - SQ 5,000 unit BID [facility] Administration Isosorbide Mononitrate 60 mg 05/25/18 10:00 05/29/18 11:16 Imdur - PO 60 mg DAILY [facility] Administration Losartan Potassium 50 mg 05/26/18 10:15 05/29/18 12:00 Cozaar - PO 50 mg DAILY [facility] Administration Nystatin/Triamcinolone Acetonide 1 applic 05/26/18 11:45 05/29/18 21:33 Mycolog Ii Ointment - TP 1 applic BID [facility] Administration Ondansetron HCl 4 mg 05/24/18 14:48 05/27/18 18:30 Zofran Injection IVPUSH 4 mg Q6H PRN Administration NAUSEA Ondansetron HCl 4 mg 05/28/18 17:44 Zofran - PO Q8H PRN NAUSEA Oxycodone HCl 5 mg 05/24/18 15:01 05/30/18 09:27 Roxicodone - PO 5 mg Q6H PRN Administration PAIN LEVEL 7 - 10 Propranolol HCl 160 mg 05/24/18 22:00 05/29/18 21:33 Inderal La - PO 160 mg BID [facility] Administration Ranitidine HCl 150 mg 05/24/18 22:00 05/30/18 09:25 Zantac - PO 150 mg BID [facility] Administration Ranolazine 1,000 mg 05/24/18 22:00 05/30/18 09:27 Ranexa - PO 1,000 mg BID [facility] Administration Rosuvastatin Calcium 10 mg 05/24/18 22:00 05/29/18 21:32 Crestor - PO 10 mg HS [facility] Administration Sodium Chloride 1 gm 05/28/18 22:00 05/29/18 21:34 Sodium Chloride Tablet - PO 1 gm BID [facility] Administration Trazodone HCl 50 mg 05/28/18 22:00 05/29/18 21:32 Desyrel - PO 50 mg HS [facility] Administration Impression 1. hyponatremia 2. chest pain 3. gerd 4. hld 5. depression 6. anxiety 7. htn 8. arthritis Plan - sodium stable - check bmp - po intake is improving - restrict free water - will need outpt follow up
[2018-05-30] MEDS: NYSTATIN/TRIAMCINOLONE TOPICAL OINTMENT 15 GM TUBE TP SCH ×2 (15:33→21:02)
--- NOTE | 2018-05-30 16:30 | PN ---
Progress Note, Physician Chief Complaint: Chest pain History of Present Illness: Previous notes and events reviewed awake and alert NAD denies SOB, states having chest discomfort earlier in day but not on examination pending MRI of Brain C-, will be discharged to SNF once results reviewed - Current Medication List Current Medications: Active Medications Acetaminophen (Tylenol -) 650 mg PO Q6H PRN PRN Reason: PAIN LEVEL 1-5 Last Admin: 05/28/18 17:22 Dose: 650 mg Aspirin (Asa -) 81 mg PO DAILY [facility] Last Admin: 05/30/18 09:26 Dose: 81 mg Escitalopram Oxalate (Lexapro -) 10 mg PO DAILY [facility] Last Admin: 05/30/18 09:25 Dose: 10 mg Heparin Sodium (Porcine) (Heparin -) 5,000 unit SQ BID [facility] Last Admin: 05/30/18 09:27 Dose: 5,000 unit Isosorbide Mononitrate (Imdur -) 60 mg PO DAILY [facility] Last Admin: 05/29/18 11:16 Dose: 60 mg Losartan Potassium (Cozaar -) 50 mg PO DAILY [facility] Last Admin: 05/29/18 12:00 Dose: 50 mg Nystatin/Triamcinolone Acetonide (Mycolog Ii Ointment -) 1 applic TP BID [facility] Last Admin: 05/30/18 15:33 Dose: 1 applic Ondansetron HCl (Zofran Injection) 4 mg IVPUSH Q6H PRN PRN Reason: NAUSEA Last Admin: 05/27/18 18:30 Dose: 4 mg Ondansetron HCl (Zofran -) 4 mg PO Q8H PRN PRN Reason: NAUSEA Oxycodone HCl (Roxicodone -) 5 mg PO Q6H PRN PRN Reason: PAIN LEVEL 7 - 10 Last Admin: 05/30/18 15:31 Dose: 5 mg Propranolol HCl (Inderal La -) 160 mg PO BID [facility] Last Admin: 05/29/18 21:33 Dose: 160 mg Ranitidine HCl (Zantac -) 150 mg PO BID [facility] Last Admin: 05/30/18 09:25 Dose: 150 mg Ranolazine (Ranexa -) 1,000 mg PO BID [facility] Last Admin: 05/30/18 09:27 Dose: 1,000 mg Rosuvastatin Calcium (Crestor -) 10 mg PO HS [facility] Last Admin: 05/29/18 21:32 Dose: 10 mg Sodium Chloride (Sodium Chloride Tablet -) 1 gm PO BID [facility] Last Admin: 05/30/18 10:00 Dose: 1 gm Trazodone HCl (Desyrel -) 50 mg PO [facility] Last Admin: 05/29/18 21:32 Dose: 50 mg - Objective Vital Signs: Vital Signs Temperature 98.1 F 05/30/18 14:00 Pulse Rate 73 05/30/18 14:00 Respiratory Rate 20 05/30/18 13:54 Blood Pressure 102/58 L 05/30/18 14:00 O2 Sat by Pulse Oximetry (%) 95 05/30/18 08:43 Constitutional: Yes: Well Nourished, No Distress, Calm Eyes: Yes: Conjunctiva Clear HENT: Yes: Atraumatic Cardiovascular: Yes: Regular Rate and Rhythm Respiratory: Yes: Regular, CTA Bilaterally Gastrointestinal: Yes: Normal Bowel Sounds, Soft, Abdomen, Obese, Other (non tender) Musculoskeletal: Yes: Muscle Weakness Extremities: Yes: WNL Edema: No Neurological: Yes: Alert Psychiatric: Yes: Alert Labs: CBC, BMP 05/25/18 07:18 05/29/18 06:40 INR, PTT INR 0.97 (0.83-1.09) 05/25/18 07:18 Problem List - Problems (1) Hypokalemia Assessment/Plan: -resolved Code(s): E87.6 - HYPOKALEMIA (2) Hyponatremia Assessment/Plan: -resolved Code(s): E87.1 - HYPO-OSMOLALITY AND HYPONATREMIA (3) Chest pain Assessment/Plan: -cardiology on board -trop neg x3 -Echo EF 55-60% Code(s): R07.9 - CHEST PAIN, UNSPECIFIED Qualifiers: Chest pain type: precordial pain Qualified Code(s): R07.2 - Precordial pain (4) Hypertension Assessment/Plan: -continue with Imdur, propanolol -low Na diet Code(s): I10 - ESSENTIAL (PRIMARY) HYPERTENSION Qualifiers: Hypertension type: essential hypertension Qualified Code(s): I10 - Essential (primary) hypertension Assessment/Plan see problem list dvt ppx
[2018-05-30] MEDS: LOSARTAN POTASSIUM 50 MG TABLET (FP) PO SCH (18:40)
[2018-05-30] MEDS: ROSUVASTATIN CA 10 MG TABLET (FP) PO SCH (21:01)
[2018-05-30] MEDS: traZODone HCL 50 MG TABLET (FP) PO SCH (21:01)
[2018-05-31 06:18] VITALS: TEMP 98.4
[2018-05-31 06:36] LABS: HEMATOCRIT 34.4 % (32.4-45.2); HEMOGLOBIN 12.2 GM/dL (10.7-15.3); MCHC 35.5 g/dl (32.0-36.0); MEAN CELL VOLUME 98.6 fl (80-96); MEAN PLT VOLUME 6.4 fl (7.5-11.1); PLATELET COUNT 264 K/MM3 (134-434); RBC 3.49 M/mm3 (3.60-5.2); RDW 12.6 % (11.6-15.6); WHITE BLOOD COUNT 5.3 K/mm3 (4.0-10.0)
[2018-05-31 07:15] LABS: ANION GAP 7 MMOL/L (8-16); BLOOD UREA NITROGEN 18 mg/dL (7-18); CALCIUM 8.3 mg/dL (8.5-10.1); CHLORIDE 97 mmol/L (98-107); CO2 29 mmol/L (21-32); CREATININE 0.7 mg/dL (0.55-1.3); GLUCOSE,RANDOM 101 mg/dL (74-106); POTASSIUM 3.6 mmol/L (3.5-5.1); SODIUM 133 mmol/L (136-145)
[2018-05-31 08:06] LABS: SERUM IRON SATURATION 31 % (15-55); TOTAL IRON BINDING CAPACITY 271 ug/dL (250-450); UIBC 187 ug/dL (118-369)
[2018-05-31 08:40] VITALS: BP 104/67; PULSE 77
[2018-05-31] MEDS ORDERED: PT OWN MED DRAWER 7, Y5N ONE (09:05)
[2018-05-31] MEDS: ACETAMINOPHEN 325 MG TABLET (FP) PO PRN (09:15)
[2018-05-31] MEDS: RANOLAZINE E.R. 1,000 MG TABLET (FP) PO SCH (09:16)
[2018-05-31] MEDS: RANITIDINE HCL 150 MG TABLET (FP) PO SCH (09:17)
[2018-05-31] MEDS: oxyCODONE HCL 5 MG TABLET PO PRN (09:17)
[2018-05-31] MEDS: ESCITALOPRAM OXALATE 10 MG TABLET (FP) PO SCH (09:17)
[2018-05-31] MEDS: ASPIRIN 81 MG CHEWABLE TABLETS PO SCH (09:17)
[2018-05-31] MEDS: HEPARIN NA (PORCINE) 5,000 UNITS/ML 1ML VIAL SQ SCH (09:17)
[2018-05-31] MEDS: LOSARTAN POTASSIUM 50 MG TABLET (FP) PO SCH (09:17)
--- NOTE | 2018-05-31 09:17 | PN ---
Progress Note, Physician History of Present Illness: Chest discomfort and dyspnea resolved. - Current Medication List Current Medications: Active Medications Acetaminophen (Tylenol -) 650 mg PO Q6H PRN PRN Reason: PAIN LEVEL 1-5 Last Admin: 05/28/18 17:22 Dose: 650 mg Aspirin (Asa -) 81 mg PO DAILY [facility] Last Admin: 05/30/18 09:26 Dose: 81 mg Escitalopram Oxalate (Lexapro -) 10 mg PO DAILY [facility] Last Admin: 05/30/18 09:25 Dose: 10 mg Heparin Sodium (Porcine) (Heparin -) 5,000 unit SQ BID [facility] Last Admin: 05/30/18 21:02 Dose: 5,000 unit Isosorbide Mononitrate (Imdur -) 60 mg PO DAILY [facility] Last Admin: 05/30/18 09:30 Dose: 60 mg Losartan Potassium (Cozaar -) 50 mg PO DAILY [facility] Last Admin: 05/30/18 18:40 Dose: Not Given Nystatin/Triamcinolone Acetonide (Mycolog Ii Ointment -) 1 applic TP BID [facility] Last Admin: 05/30/18 21:02 Dose: 1 applic Ondansetron HCl (Zofran Injection) 4 mg IVPUSH Q6H PRN PRN Reason: NAUSEA Last Admin: 05/27/18 18:30 Dose: 4 mg Ondansetron HCl (Zofran -) 4 mg PO Q8H PRN PRN Reason: NAUSEA Oxycodone HCl (Roxicodone -) 5 mg PO Q6H PRN PRN Reason: PAIN LEVEL 7 - 10 Last Admin: 05/30/18 21:04 Dose: 5 mg Propranolol HCl (Inderal La -) 160 mg PO BID [facility] Last Admin: 05/30/18 21:02 Dose: Not Given Ranitidine HCl (Zantac -) 150 mg PO BID [facility] Last Admin: 05/30/18 21:03 Dose: 150 mg Ranolazine (Ranexa -) 1,000 mg PO BID [facility] Last Admin: 05/30/18 21:03 Dose: 1,000 mg Rosuvastatin Calcium (Crestor -) 10 mg PO HS [facility] Last Admin: 05/30/18 21:01 Dose: 10 mg Sodium Chloride (Sodium Chloride Tablet -) 1 gm PO BID [facility] Last Admin: 05/30/18 21:03 Dose: 1 gm Trazodone HCl (Desyrel -) 50 mg PO HS [facility] Last Admin: 05/30/18 21:01 Dose: 50 mg - Objective Vital Signs: Vital Signs Temperature 98.4 F 05/31/18 06:00 Pulse Rate 77 05/31/18 08:39 Respiratory Rate 20 05/31/18 08:39 Blood Pressure 104/67 05/31/18 08:39 O2 Sat by Pulse Oximetry (%) 96 05/31/18 08:37 Constitutional: Yes: No Distress, Calm Neck: Yes: Supple Cardiovascular: Yes: Regular Rate and Rhythm Respiratory: Yes: Regular, CTA Bilaterally Gastrointestinal: Yes: Normal Bowel Sounds, Soft Edema: No Labs: CBC, BMP 05/31/18 05:30 05/31/18 05:30 INR, PTT INR 0.97 (0.83-1.09) 05/25/18 07:18 - ....Imaging MRI: Report Reviewed (05/30/2018 Brain MRI: No strokes) Problem List - Problems (1) Mitral valve prolapse syndrome Code(s): I34.1 - NONRHEUMATIC MITRAL (VALVE) PROLAPSE (2) Endothelial dysfunction of coronary artery Code(s): I99.8 - OTHER DISORDER OF CIRCULATORY SYSTEM (3) Chest pain Code(s): R07.9 - CHEST PAIN, UNSPECIFIED Qualifiers: Chest pain type: precordial pain Qualified Code(s): R07.2 - Precordial pain (4) Hyperlipemia Code(s): E78.5 - HYPERLIPIDEMIA, UNSPECIFIED Qualifiers: Hyperlipidemia type: pure hypercholesterolemia Qualified Code(s): E78.00 - Pure hypercholesterolemia, unspecified; E78.0 - Pure hypercholesterolemia (5) Hypertension Code(s): I10 - ESSENTIAL (PRIMARY) HYPERTENSION Qualifiers: Hypertension type: essential hypertension Qualified Code(s): I10 - Essential (primary) hypertension (6) Hyponatremia Code(s): E87.1 - HYPO-OSMOLALITY AND HYPONATREMIA Assessment/Plan 05/25/2018 Echo: Normal LVEF 55-60%, normal RV size and fxn, mild MR, TR A: 1. Chest pain syndrome in a patient with known history of coronary artery disease related to endothelial dysfunction 2. Mitral valve prolapse syndrome. 3. Hypertensive cardiovascular disease. 4. Hypercholesterolemia. 5. Hyponatremia and hypokalemia resolving 6. Carotid stenosis mild in severity. 7. History of migraine headaches 8. History of hemochromatosis. 9. Degenerative lumbosacral disc disease with chronic low back pain syndrome. 10. History of traumatic ankle fracture post-ORIF PLAN: 1. Follow electrolytes 2. Continue Inderal LA 160 mg BID, Ranexa 1000 mg BID, Imdur 60 mg QD, Crestor 10 mg QD and Ecotrin 81 mg QD 3. Losartan 50 mg QD and uptitrate. Benicar is not on formulary. As outpatient. Benicar can be resumed and uptitrated 4. Nuclear Stress testing may be performed as outpatient, f/u with Dr. Holder in office 5. D/c planning, PT->SNF
[2018-05-31] MEDS: ISOSORBIDE MONONITRATE 60 MG TAB.SR.24H (FP) PO SCH (09:18)
[2018-05-31] MEDS: NYSTATIN/TRIAMCINOLONE TOPICAL OINTMENT 15 GM TUBE TP SCH (09:19)
[2018-05-31] MEDS: SODIUM CHLORIDE 1 GM TABLET PO SCH (09:24)
--- NOTE | 2018-05-31 10:58 | PN ---
Progress Note, Physician Chief Complaint: patient seen and examined complaining of dizziness MRI of brain negative for infarcts no chest pain no sob - Current Medication List Current Medications: Active Medications Acetaminophen (Tylenol -) 650 mg PO Q6H PRN PRN Reason: PAIN LEVEL 1-5 Last Admin: 05/31/18 09:15 Dose: 650 mg Aspirin (Asa -) 81 mg PO DAILY [facility] Last Admin: 05/31/18 09:17 Dose: 81 mg Escitalopram Oxalate (Lexapro -) 10 mg PO DAILY [facility] Last Admin: 05/31/18 09:17 Dose: 10 mg Heparin Sodium (Porcine) (Heparin -) 5,000 unit SQ BID [facility] Last Admin: 05/31/18 09:17 Dose: 5,000 unit Isosorbide Mononitrate (Imdur -) 60 mg PO DAILY [facility] Last Admin: 05/31/18 09:18 Dose: 60 mg Losartan Potassium (Cozaar -) 50 mg PO DAILY [facility] Last Admin: 05/31/18 09:17 Dose: 50 mg Nystatin/Triamcinolone Acetonide (Mycolog Ii Ointment -) 1 applic TP BID [facility] Last Admin: 05/31/18 09:19 Dose: 1 applic Ondansetron HCl (Zofran Injection) 4 mg IVPUSH Q6H PRN PRN Reason: NAUSEA Last Admin: 05/27/18 18:30 Dose: 4 mg Ondansetron HCl (Zofran -) 4 mg PO Q8H PRN PRN Reason: NAUSEA Oxycodone HCl (Roxicodone -) 5 mg PO Q6H PRN PRN Reason: PAIN LEVEL 7 - 10 Last Admin: 05/31/18 09:17 Dose: 5 mg Propranolol HCl (Inderal La -) 160 mg PO BID [facility] Last Admin: 05/31/18 09:19 Dose: Not Given Ranitidine HCl (Zantac -) 150 mg PO BID [facility] Last Admin: 05/31/18 09:17 Dose: 150 mg Ranolazine (Ranexa -) 1,000 mg PO BID [facility] Last Admin: 05/31/18 09:16 Dose: 1,000 mg Rosuvastatin Calcium (Crestor -) 10 mg PO HS [facility] Last Admin: 05/30/18 21:01 Dose: 10 mg Sodium Chloride (Sodium Chloride Tablet -) 1 gm PO BID [facility] Last Admin: 05/31/18 09:24 Dose: Not Given Trazodone HCl (Desyrel -) 50 mg PO HS [facility] Last Admin: 05/30/18 21:01 Dose: 50 mg - Objective Vital Signs: Vital Signs Temperature 98.4 F 05/31/18 06:00 Pulse Rate 77 05/31/18 08:39 Respiratory Rate 20 05/31/18 08:39 Blood Pressure 104/67 05/31/18 08:39 O2 Sat by Pulse Oximetry (%) 96 05/31/18 08:37 Constitutional: Yes: Calm Cardiovascular: Yes: Regular Rate and Rhythm, S1, S2 Respiratory: Yes: CTA Bilaterally Gastrointestinal: Yes: Normal Bowel Sounds, Soft Edema: No Neurological: Yes: Alert Labs: CBC, BMP 05/31/18 05:30 05/31/18 05:30 INR, PTT INR 0.97 (0.83-1.09) 05/25/18 07:18 Problem List - Problems (1) Hyponatremia Assessment/Plan: salt tablets Code(s): E87.1 - HYPO-OSMOLALITY AND HYPONATREMIA (2) Chest pain Assessment/Plan: telemtry nsr- dc telemetry echo left ventricle systolic function normal and ejection fraction normal outpatient stress test lipid profile statin aspirin inderal Code(s): R07.9 - CHEST PAIN, UNSPECIFIED Qualifiers: Chest pain type: precordial pain Qualified Code(s): R07.2 - Precordial pain (3) Depression Assessment/Plan: trazadone lexapro Code(s): F32.9 - MAJOR DEPRESSIVE DISORDER, SINGLE EPISODE, UNSPECIFIED Assessment/Plan dc to [facility]
--- NOTE | 2018-05-31 11:32 | DS ---
Physical Examination Vital Signs: Vital Signs Temperature 98.4 F 05/31/18 06:00 Pulse Rate 77 05/31/18 08:39 Respiratory Rate 20 05/31/18 08:39 Blood Pressure 104/67 05/31/18 08:39 O2 Sat by Pulse Oximetry (%) 96 05/31/18 08:37 Findings/Remarks: Patient is a 67 y/o female with past medical history of HTN, HLD, CAD, arhtritis , vertigo, who presented to ER with chest pain. Patient was admitted to [facility] for cardiac monitoring. Cardiac work up negative, itz multani outpatient stress test. Seen by renal for hyponatremia, Na level improved and will follow up with renal as an outpatient. Constitutional: Yes: No Distress, Calm Eyes: Yes: Conjunctiva Clear HENT: Yes: Atraumatic Cardiovascular: Yes: Regular Rate and Rhythm Respiratory: Yes: Regular, CTA Bilaterally Gastrointestinal: Yes: Normal Bowel Sounds, Soft Musculoskeletal: Yes: Muscle Weakness Extremities: Yes: WNL Edema: No Neurological: Yes: Alert Psychiatric: Yes: Alert Labs: CBC, BMP 05/31/18 05:30 05/31/18 05:30 Discharge Summary Reason For Visit: CHEST PAIN Current Active Problems Depression (Acute) Endothelial dysfunction of coronary artery (Acute) Hypokalemia (Acute) Hyponatremia (Acute) Mitral valve prolapse syndrome (Acute) Procedures: Principal: Brain MRI. Head CT scan Other Procedures: EKG. CXR Hospital Course: see progress notes Laboratory Tests 05/24/18 05/24/18 05/24/18 11:36 11:36 11:36 WBC 10.2 H RBC 4.00 Hgb 13.8 Hct 38.7 MCV 96.7 H MCH 34.4 H MCHC 35.5 RDW 12.0 Plt Count 330 D MPV 7.1 L Absolute Neuts (auto) 8.9 H Neutrophils % 88.0 H D Lymphocytes % 7.1 L D Monocytes % 4.0 Eosinophils % 0.1 D Basophils % 0.8 Nucleated RBC % 0 ESR PT with INR 11.90 INR 1.01 PTT (Actin FS) Sodium 125 L Potassium 3.6 Chloride 90 L Carbon Dioxide 24 Anion Gap 12 BUN 10 Creatinine 0.6 Creat Clearance w eGFR > 60 Random Glucose 158 H Hemoglobin A1c % Serum Osmolality Uric Acid Calcium 8.4 L Phosphorus Magnesium 1.8 Iron TIBC Iron Saturation Total Bilirubin 0.5 AST 28 ALT 16 Alkaline Phosphatase 61 Creatine Kinase 180 Creatine Kinase Index 2.4 CK-MB (CK-2) 4.4 H Troponin I < 0.02 C-Reactive Protein B-Natriuretic Peptide Total Protein 6.8 Albumin 3.6 Triglycerides Cholesterol Total LDL Cholesterol HDL Cholesterol Vitamin B12 TSH Cortisol AM Sample Urine Color Urine Appearance Urine pH Ur Specific [place] Urine Protein Urine Glucose (UA) Urine Ketones Urine Blood Urine Nitrite Urine Bilirubin Urine Urobilinogen Ur Leukocyte Esterase Urine WBC (Auto) Urine RBC (Auto) Ur Epithelial Cells Hyaline Casts Urine Mucus Urine Osmolality Ur Random Sodium Urine Creatinine RPR Titer 05/24/18 05/24/18 05/24/18 12:53 18:00 18:05 WBC RBC Hgb Hct MCV MCH MCHC RDW Plt Count MPV Absolute Neuts (auto) Neutrophils % Lymphocytes % Monocytes % Eosinophils % Basophils % Nucleated RBC % ESR PT with INR INR PTT (Actin FS) Sodium 126 L Potassium 3.3 L Chloride 94 L Carbon Dioxide 22 Anion Gap 10 BUN 11 Creatinine 0.7 Creat Clearance w eGFR > 60 Random Glucose 143 H Hemoglobin A1c % Serum Osmolality 263 L 482 H Uric Acid Calcium 8.0 L Phosphorus Magnesium Iron TIBC Iron Saturation Total Bilirubin 0.4 AST 27 ALT 17 Alkaline Phosphatase 56 Creatine Kinase 274 H Creatine Kinase Index 2.6 CK-MB (CK-2) 7.2 H Troponin I 0.03 C-Reactive Protein B-Natriuretic Peptide Total Protein 6.4 Albumin 3.4 Triglycerides Cholesterol Total LDL Cholesterol HDL Cholesterol Vitamin B12 TSH Cortisol AM Sample Urine Color Dkyellow Urine Appearance Clear Urine pH 6.0 Ur Specific [place] 1.030 Urine Protein 1+ H Urine Glucose (UA) Negative Urine Ketones 1+ H Urine Blood Negative Urine Nitrite Negative Urine Bilirubin Negative Urine Urobilinogen Negative Ur Leukocyte Esterase Trace Urine WBC (Auto) 8 Urine RBC (Auto) 2 Ur Epithelial Cells Rare Hyaline Casts 1 Urine Mucus Rare Urine Osmolality Ur Random Sodium Urine Creatinine RPR Titer 05/24/18 05/25/18 05/25/18 18:05 07:18 07:18 WBC 7.3 RBC 3.75 Hgb 13.2 Hct 36.5 MCV 97.5 H MCH 35.3 H MCHC 36.2 H RDW 12.0 Plt Count 282 MPV 7.1 L Absolute Neuts (auto) Neutrophils % Lymphocytes % Monocytes % Eosinophils % Basophils % Nucleated RBC % ESR PT with INR 11.50 INR 0.97 PTT (Actin FS) 28.7 Sodium Potassium Chloride Carbon Dioxide Anion Gap BUN Creatinine Creat Clearance w eGFR Random Glucose Hemoglobin A1c % Serum Osmolality Uric Acid Calcium Phosphorus Magnesium Iron TIBC Iron Saturation Total Bilirubin AST ALT Alkaline Phosphatase Creatine Kinase Creatine Kinase Index CK-MB (CK-2) Troponin I C-Reactive Protein B-Natriuretic Peptide Total Protein Albumin Triglycerides Cholesterol Total LDL Cholesterol HDL Cholesterol Vitamin B12 TSH Cortisol AM Sample Urine Color Urine Appearance Urine pH Ur Specific [place] Urine Protein Urine Glucose (UA) Urine Ketones Urine Blood Urine Nitrite Urine Bilirubin Urine Urobilinogen Ur Leukocyte Esterase Urine WBC (Auto) Urine RBC (Auto) Ur Epithelial Cells Hyaline Casts Urine Mucus Urine Osmolality 654 Ur Random Sodium 26 L Urine Creatinine 154.0 RPR Titer 05/25/18 05/25/18 05/25/18 07:18 07:18 07:18 WBC RBC Hgb Hct MCV MCH MCHC RDW Plt Count MPV Absolute Neuts (auto) Neutrophils % Lymphocytes % Monocytes % Eosinophils % Basophils % Nucleated RBC % ESR PT with INR INR PTT (Actin FS) Sodium 129 L Potassium 3.3 L Chloride 94 L Carbon Dioxide 26 Anion Gap 10 BUN 5 L Creatinine 0.5 L Creat Clearance w eGFR > 60 Random Glucose 121 H Hemoglobin A1c % 5.7 Serum Osmolality Uric Acid Calcium 8.0 L Phosphorus 2.1 L Magnesium 1.8 Iron TIBC Iron Saturation Total Bilirubin 0.4 AST 37 ALT 22 Alkaline Phosphatase 59 Creatine Kinase 753 H Creatine Kinase Index 2.8 CK-MB (CK-2) 21.1 H Troponin I 0.03 C-Reactive Protein B-Natriuretic Peptide 1347.9 H Total Protein 6.4 Albumin 3.4 Triglycerides 119 Cholesterol 140 Total LDL Cholesterol 66 HDL Cholesterol 51 Vitamin B12 TSH 0.45 Cortisol AM Sample 18.5 Urine Color Urine Appearance Urine pH Ur Specific [place] Urine Protein Urine Glucose (UA) Urine Ketones Urine Blood Urine Nitrite Urine Bilirubin Urine Urobilinogen Ur Leukocyte Esterase Urine WBC (Auto) Urine RBC (Auto) Ur Epithelial Cells Hyaline Casts Urine Mucus Urine Osmolality Ur Random Sodium Urine Creatinine RPR Titer 05/25/18 05/26/18 05/26/18 14:45 05:30 17:10 WBC RBC Hgb Hct MCV MCH MCHC RDW Plt Count MPV Absolute Neuts (auto) Neutrophils % Lymphocytes % Monocytes % Eosinophils % Basophils % Nucleated RBC % ESR PT with INR INR PTT (Actin FS) Sodium 125 L 128 L Potassium 3.3 L 3.4 L Chloride 90 L 93 L Carbon Dioxide 27 28 Anion Gap 8 7 L BUN 5 L 2 L* Creatinine 0.6 0.4 L Creat Clearance w eGFR > 60 > 60 Random Glucose 130 H 132 H Hemoglobin A1c % Serum Osmolality Uric Acid Calcium 7.6 L 8.0 L Phosphorus Magnesium Iron TIBC Iron Saturation Total Bilirubin 0.4 0.4 AST 48 H 52 H ALT 26 32 Alkaline Phosphatase 61 62 Creatine Kinase Creatine Kinase Index CK-MB (CK-2) Troponin I C-Reactive Protein B-Natriuretic Peptide Total Protein 6.1 L 6.3 L Albumin 3.3 L 3.4 Triglycerides Cholesterol Total LDL Cholesterol HDL Cholesterol Vitamin B12 TSH Cortisol AM Sample Urine Color Dkyellow Urine Appearance Clear Urine pH 6.0 Ur Specific [place] 1.014 Urine Protein Negative Urine Glucose (UA) Negative Urine Ketones Negative Urine Blood Negative Urine Nitrite Negative Urine Bilirubin Negative Urine Urobilinogen 2.0 H Ur Leukocyte Esterase 3+ H Urine WBC (Auto) 5 Urine RBC (Auto) <1 Ur Epithelial Cells Rare Hyaline Casts Urine Mucus Rare Urine Osmolality Ur Random Sodium Urine Creatinine RPR Titer 05/27/18 05/28/18 05/28/18 05:30 05:30 17:15 WBC RBC Hgb Hct MCV MCH MCHC RDW Plt Count MPV Absolute Neuts (auto) Neutrophils % Lymphocytes % Monocytes % Eosinophils % Basophils % Nucleated RBC % ESR PT with INR INR PTT (Actin FS) Sodium 133 L 132 L 130 L Potassium 4.6 4.3 4.3 Chloride 98 96 L 93 L Carbon Dioxide 29 30 31 Anion Gap 6 L 6 L 6 L BUN 2 L* 4 L Creatinine 0.4 L 0.6 Creat Clearance w eGFR > 60 > 60 Random Glucose 125 H 124 H Hemoglobin A1c % Serum Osmolality Uric Acid 1.1 L Calcium 8.4 L 8.7 Phosphorus Magnesium Iron TIBC Iron Saturation Total Bilirubin 0.4 0.5 AST 37 33 ALT 34 34 Alkaline Phosphatase 62 71 Creatine Kinase Creatine Kinase Index CK-MB (CK-2) Troponin I C-Reactive Protein B-Natriuretic Peptide Total Protein 6.4 6.4 Albumin 3.4 3.6 Triglycerides Cholesterol Total LDL Cholesterol HDL Cholesterol Vitamin B12 TSH Cortisol AM Sample Urine Color Urine Appearance Urine pH Ur Specific [place] Urine Protein Urine Glucose (UA) Urine Ketones Urine Blood Urine Nitrite Urine Bilirubin Urine Urobilinogen Ur Leukocyte Esterase Urine WBC (Auto) Urine RBC (Auto) Ur Epithelial Cells Hyaline Casts Urine Mucus Urine Osmolality Ur Random Sodium Urine Creatinine RPR Titer 05/29/18 05/29/18 05/29/18 03:10 06:40 17:15 WBC RBC Hgb Hct MCV MCH MCHC RDW Plt Count MPV Absolute Neuts (auto) Neutrophils % Lymphocytes % Monocytes % Eosinophils % Basophils % Nucleated RBC % ESR PT with INR INR PTT (Actin FS) Sodium 136 Potassium 3.5 Chloride 96 L Carbon Dioxide 30 Anion Gap 10 BUN 6 L Creatinine 0.6 Creat Clearance w eGFR > 60 Random Glucose 107 H Hemoglobin A1c % Serum Osmolality Uric Acid Calcium 8.5 Phosphorus Magnesium 2.1 Iron 84 TIBC 271 Iron Saturation 31 Total Bilirubin 0.4 AST 25 ALT 35 Alkaline Phosphatase 78 Creatine Kinase Creatine Kinase Index CK-MB (CK-2) Troponin I C-Reactive Protein B-Natriuretic Peptide Total Protein 6.8 Albumin 3.6 Triglycerides Cholesterol Total LDL Cholesterol HDL Cholesterol Vitamin B12 TSH Cortisol AM Sample Urine Color Urine Appearance Urine pH Ur Specific [place] Urine Protein Urine Glucose (UA) Urine Ketones Urine Blood Urine Nitrite Urine Bilirubin Urine Urobilinogen Ur Leukocyte Esterase Urine WBC (Auto) Urine RBC (Auto) Ur Epithelial Cells Hyaline Casts Urine Mucus Urine Osmolality 194 L Ur Random Sodium Urine Creatinine RPR Titer 05/29/18 05/29/18 05/30/18 17:15 17:15 05:30 WBC RBC Hgb Hct MCV MCH MCHC RDW Plt Count MPV Absolute Neuts (auto) Neutrophils % Lymphocytes % Monocytes % Eosinophils % Basophils % Nucleated RBC % ESR 28 PT with INR INR PTT (Actin FS) Sodium Potassium Chloride Carbon Dioxide Anion Gap BUN Creatinine Creat Clearance w eGFR Random Glucose Hemoglobin A1c % Serum Osmolality Uric Acid Calcium Phosphorus Magnesium Iron TIBC Iron Saturation Total Bilirubin AST ALT Alkaline Phosphatase Creatine Kinase Creatine Kinase Index CK-MB (CK-2) Troponin I C-Reactive Protein 0.6 H B-Natriuretic Peptide Total Protein Albumin Triglycerides Cholesterol Total LDL Cholesterol HDL Cholesterol Vitamin B12 618 TSH Cortisol AM Sample Urine Color Urine Appearance Urine pH Ur Specific [place] Urine Protein Urine Glucose (UA) Urine Ketones Urine Blood Urine Nitrite Urine Bilirubin Urine Urobilinogen Ur Leukocyte Esterase Urine WBC (Auto) Urine RBC (Auto) Ur Epithelial Cells Hyaline Casts Urine Mucus Urine Osmolality Ur Random Sodium Urine Creatinine RPR Titer 05/30/18 05/31/18 05/31/18 05:30 05:30 05:30 WBC 5.3 RBC 3.49 L Hgb 12.2 Hct 34.4 MCV 98.6 H MCH 35.0 H MCHC 35.5 RDW 12.6 Plt Count 264 MPV 6.4 L Absolute Neuts (auto) Neutrophils % Lymphocytes % Monocytes % Eosinophils % Basophils % Nucleated RBC % ESR PT with INR INR PTT (Actin FS) Sodium 133 L Potassium 3.6 Chloride 97 L Carbon Dioxide 29 Anion Gap 7 L BUN 18 Creatinine 0.7 Creat Clearance w eGFR > 60 Random Glucose 101 Hemoglobin A1c % Serum Osmolality Uric Acid Calcium 8.3 L Phosphorus Magnesium Iron TIBC Iron Saturation Total Bilirubin AST ALT Alkaline Phosphatase Creatine Kinase Creatine Kinase Index CK-MB (CK-2) Troponin I C-Reactive Protein B-Natriuretic Peptide Total Protein Albumin Triglycerides Cholesterol Total LDL Cholesterol HDL Cholesterol Vitamin B12 TSH Cortisol AM Sample Urine Color Urine Appearance Urine pH Ur Specific [place] Urine Protein Urine Glucose (UA) Urine Ketones Urine Blood Urine Nitrite Urine Bilirubin Urine Urobilinogen Ur Leukocyte Esterase Urine WBC (Auto) Urine RBC (Auto) Ur Epithelial Cells Hyaline Casts Urine Mucus Urine Osmolality Ur Random Sodium Urine Creatinine RPR Titer Nonreactive Active Medications Generic Name Dose Route Start Last Admin Trade Name Freq PRN Reason Stop Dose Admin Acetaminophen 650 mg 05/24/18 14:58 05/31/18 09:15 Tylenol - PO 650 mg Q6H PRN Administration PAIN LEVEL 1-5 Aspirin 81 mg 05/25/18 10:00 05/31/18 09:17 Asa - PO 81 mg DAILY [facility] Administration Escitalopram Oxalate 10 mg 05/29/18 10:00 05/31/18 09:17 Lexapro - PO 10 mg DAILY [facility] Administration Heparin Sodium (Porcine) 5,000 unit 05/26/18 10:00 05/31/18 09:17 Heparin - SQ 5,000 unit BID [facility] Administration Isosorbide Mononitrate 60 mg 05/25/18 10:00 05/31/18 09:18 Imdur - PO 60 mg DAILY [facility] Administration Losartan Potassium 50 mg 05/26/18 10:15 05/31/18 09:17 Cozaar - PO 50 mg DAILY [facility] Administration Nystatin/Triamcinolone Acetonide 1 applic 05/26/18 11:45 05/31/18 09:19 Mycolog Ii Ointment - TP 1 applic BID [facility] Administration Ondansetron HCl 4 mg 05/24/18 14:48 05/27/18 18:30 Zofran Injection IVPUSH 4 mg Q6H PRN Administration NAUSEA Ondansetron HCl 4 mg 05/28/18 17:44 Zofran - PO Q8H PRN NAUSEA Oxycodone HCl 5 mg 05/24/18 15:01 05/31/18 09:17 Roxicodone - PO 5 mg Q6H PRN Administration PAIN LEVEL 7 - 10 Propranolol HCl 160 mg 05/24/18 22:00 05/31/18 09:19 Inderal La - PO Not Given BID [facility] Ranitidine HCl 150 mg 05/24/18 22:00 05/31/18 09:17 Zantac - PO 150 mg BID [facility] Administration Ranolazine 1,000 mg 05/24/18 22:00 05/31/18 09:16 Ranexa - PO 1,000 mg BID [facility] Administration Rosuvastatin Calcium 10 mg 05/24/18 22:00 05/30/18 21:01 Crestor - PO 10 mg HS [facility] Administration Sodium Chloride 1 gm 05/28/18 22:00 05/31/18 09:24 Sodium Chloride Tablet - PO Not Given BID [facility] Trazodone HCl 50 mg 05/28/18 22:00 05/30/18 21:01 Desyrel - PO 50 mg HS [facility] Administration Condition: Improved - Instructions Diet, Activity, Other Instructions: check iron studies at [place] weekly bmp to check sodium sodium tablets bid Referrals: Ethan López MD [Primary Care Provider] - Disposition: [facility] - Home Medications Comprehensive Discharge Medication List: Ambulatory Orders Ranolazine [Ranexa -] 1,000 mg PO BID #0 tab 06/04/12 Ranitidine HCl [Zantac] 150 mg PO BID 04/10/13 Alendronate Na [Fosamax (Weekly)] 1 tab PO WEEKLY 01/31/14 Rosuvastatin Calcium [Crestor] 20 mg PO HS 01/31/14 Propranolol HCl [Propranolol HCl ER] 160 mg PO BID 06/10/15 traZODone HCL [Desyrel -] 50 mg PO HS 06/10/15 Aripiprazole 2 mg PO HS 12/22/15 Levomefolate/Algal Oil [Deplin-Algal Oil 15 mg Capsule] 1 each PO HS 12/22/15 Hydrocodone/Acetaminophen [Vicodin 5-300 mg Tablet] 1 - 2 tab PO TID PRN #60 tablet MDD 6 12/23/15 Aspirin [ASA -] 81 mg PO DAILY tab.chew 05/29/18 Escitalopram Oxalate [Lexapro -] 10 mg PO DAILY #30 tablet 05/29/18 Heparin - 5,000 unit SQ BID vial 05/29/18 Isosorbide Mononitrate [Imdur -] 60 mg PO DAILY tab.sr.24h 05/29/18 Losartan Potassium [Cozaar -] 50 mg PO DAILY #30 tablet MDD 1 05/29/18 Ranitidine [Zantac -] 150 mg PO BID #30 tablet MDD 2 05/29/18 Ranolazine [Ranexa -] 1,000 mg PO BID tab 05/29/18 Rosuvastatin [Crestor -] 10 mg PO HS tablet 05/29/18 Sodium Chloride Tablet - 1 gm PO BID #30 tablet 05/29/18 propRANOLol HCL [Inderal LA -] 160 mg PO BID #30 capsule.er MDD 2 05/31/18 traZODone HCL [Desyrel -] 50 mg PO HS tablet 05/31/18
== END 2018-05-31 13:13 | DRG 641 ==
LOC: JER 11:18 → JERBED 13:09 → J4W 19:01
PROVIDERS: ADMIT Student in an Organized Health Care Education/Training Program; ATTEND Student in an Organized Health Care Education/Training Program
DX: E87.1 Hypo-osmolality and hyponatremia (principal); I25.10 Atherosclerotic heart disease of native coronary artery without angina pectoris; E87.6 Hypokalemia; E78.5 Hyperlipidemia, unspecified; I11.9 Hypertensive heart disease without heart failure; R07.89 Other chest pain; R51 Headache; I95.1 Orthostatic hypotension; M54.5 Low back pain; K21.9 Gastro-esophageal reflux disease without esophagitis; F41.8 Other specified anxiety disorders; M19.90 Unspecified osteoarthritis, unspecified site
CPT/HCPCS: 36415; 70450-TC; 70551-TC; 71045-TC-FY; 80048; 80051; 80053; 80061; 81003; 81015; 82533; 82550; 82553; 82570; 82607; 83036; 83540; 83550; 83721; 83735; 83880; 83930; 83935; 84100; 84300; 84443; 84484; 84550; 85025; 85027; 85610; 85651; 85730; 86140; 86593; 93005; 93010; 93306-TC; 97116-GP; 99285-25; J0131; J1644; J7030